=== PATIENT | male | born 1950 | race Caucasian/White ===

== ENCOUNTER → 2018-10-26 | Outpatient (CLI) | payer OTHER ==
--- NOTE | 2018-10-26 14:13 | RAD ---
Chest, 2 views, 10/26/2018: HISTORY: Check pacemaker No previous chest radiographs are available at this time for comparison purposes. A left-sided transvenous pacemaker is in place with one lead extending into the anterior aspect of the right ventricle while the tip of the other lead is projected over the superior aspect of the right atrium. The heart is mildly enlarged. There is calcific plaquing the aorta. The pulmonary vascularity is normal. The lungs are hyperexpanded. Pleural thickening in the left lower chest suggests a moderate volume of pleural fluid. There appears to be minimal underlying left basilar atelectasis. Blunting of the costophrenic angles on the right may be due to scarring or a tiny amount pleural fluid. There is no evidence of pneumothorax. IMPRESSION: 1. Cardiomegaly and aortic atherosclerosis. 2. Left basilar opacity suggesting a moderate volume of pleural fluid with mild underlying atelectasis. Electronically signed by: Chuy Ren MD (10/26/2018 2:10 PM) [facility]
== END | disposition home or self-care (01) ==
LOC: RAD 13:08
PROVIDERS: ATTEND Internal Medicine Cardiovascular Disease
DX: I70.0 Atherosclerosis of aorta (principal); I51.7 Cardiomegaly; I49.5 Sick sinus syndrome; Z95.0 Presence of cardiac pacemaker
CPT/HCPCS: 71046

== ENCOUNTER → 2019-07-07 | Outpatient (CLI) | payer OTHER ==
--- NOTE | 2019-07-12 09:19 | RAD ---
Examination: Pet W Ct Skull To Midthigh History: Lung mass-initial screening; growth of a left lateral apical pleural based irregular mass lesion on CT exam. Images of the CT exam are not provided for correlation. Comparison/Correlation: None FINDINGS: Net dose 13.7 mCi F-18 FDG was administered intravenously for purposes of whole body PET/CT exam. Blood glucose level at the time of radiotracer administration was 85 mg/dL. Hepatic reference uptake is SUV max of 2.3 . Uptake of radiotracer within the visualized head and neck is unremarkable. At the lateral left apical region adjacent to the pleural surface adjacent to the left second rib, there is a 1 cm x 0.5 cm irregularly marginated lesion which has an SUV max of 2. Minimal right apical linear scarring is noted. Right apical 0.5 cm diameter noncalcified nodule is present without uptake and this is below limits of PET resolution. This finding is present on axial image 60 of series 3. Diffuse emphysematous involvement of the lung jules is noted. Left-sided pacemaker with associated leads identified. No enlarged thoracic lymph nodes. No infiltrate or pleural effusion. Uptake of radiotracer within the abdomen and pelvis unremarkable. Degenerative disc space narrowing is notable involving cervical spine and the lower lumbar spine. No radiopaque collecting system calculi. No abdominal aortic aneurysm. IMPRESSION: Uptake involving the left lateral apical pleural based nodule is similar to blood pool uptake. Possibility of low-grade neoplastic process is not excluded on basis of this exam. Centrilobular emphysema. No abnormal uptake involving the abdomen or pelvis. No abnormal uptake involving the visualized head or neck. PQRS Compliance Statement: One or more of the following individualized dose reduction techniques were utilized for this examination: 1. Automated exposure control 2. Adjustment of the mA and/or kV according to patient size 3. Use of iterative reconstruction technique Electronically signed by: Bar Stevens MD (07/12/2019 9:17 AM) [facility]
== END | disposition home or self-care (01) ==
LOC: PETSC 11:29
PROVIDERS: ATTEND Internal Medicine
DX: D38.1 Neoplasm of uncertain behavior of trachea, bronchus and lung (principal); J43.2 Centrilobular emphysema; R91.1 Solitary pulmonary nodule; M50.30 Other cervical disc degeneration, unspecified cervical region; M48.02 Spinal stenosis, cervical region; M51.36 Other intervertebral disc degeneration, lumbar region; M48.061 Spinal stenosis, lumbar region without neurogenic claudication
CPT/HCPCS: 78815; A9552; 78816

== ENCOUNTER 2021-08-15 20:35 | Inpatient (IN) | payer OTHER ==
[~2021-08-15] VITALS: Ht 177.8 cm; Wt 49.3 kg
[2021-08-15] MEDS ORDERED: IV NORMAL SALINE 1000ML BAG 1,000 ML IV ONE (20:45)
[2021-08-15] MEDS ORDERED: ACETAMINOPHEN 500 MG TABLET PO ONE (20:45)
[2021-08-15 20:56] LABS: BASO # 0.1 x10^3/uL (0.0-0.2); BASO % 1 % (0-3); EOS # 0.3 x10^3/uL (0.0-0.7); EOS % 3 % (0-3); HEMATOCRIT 37.9 % (39.0-53.0); HEMOGLOBIN 13.2 g/dL (13.0-17.5); LYMPH # 3.8 x10^3/uL (1.0-4.8); LYMPH % 45 % (24-48); MEAN CORPUSCULAR HEMOGLOBIN 36 pg (25-35); MEAN CORPUSCULAR HGB CONC 35 g/dL (31-37); MEAN CORPUSCULAR VOLUME 104 fL (79-100); MONO # 1.1 x10^3/uL (0.0-1.1); MONO % 14 % (0-9); NEUT # 3.1 x10^3/uL (1.8-7.7); NEUT % 37 % (31-73); PLATELET COUNT 285 x10^3/uL (140-400); RED BLOOD COUNT 3.63 x10^6/uL (4.30-5.70); RED CELL DISTRIBUTION WIDTH 12.8 % (11.5-14.5); WHITE BLOOD COUNT 8.4 x10^3/uL (4.0-11.0)
[2021-08-15 21:04] LABS: PROTHROMBIN TIME PATIENT 12.5 SEC (11.7-14.0)
[2021-08-15 21:10] LABS: CALCIUM 8.3 mg/dL (8.5-10.1); CREATININE 0.7 mg/dL (0.7-1.3); GFR 110.5; POTASSIUM 3.9 mmol/L (3.5-5.1)
[2021-08-15 21:15] LABS: ALBUMIN 3.3 g/dL (3.4-5.0); ALBUMIN/GLOBULIN RATIO 0.9 (1.0-1.7); TOTAL BILIRUBIN 0.4 mg/dL (0.2-1.0); TOTAL PROTEIN 7.1 g/dL (6.4-8.2)
--- NOTE | 2021-08-15 21:32 | RAD ---
EXAMINATION: CT head and cervical spine without IV contrast. INDICATION:71 years, Male, fall, syncope. COMPARISON: None TECHNIQUE: Spiral acquisition of contiguous images from the skull base to the vertex were obtained. C T of the cervical spine was obtained using contiguous spiral imaging from the skull base to the upper thoracic level. Sagittal and coronal 2D reformatted series were provided by the technologist. Soft t issue and bone window algorithms were reviewed. Exposure: One or more of the following individualized dose reduction techniques were utilized for thi s examination: 1. Automated exposure control 2. Adjustment of the mA and/or kV according to patient size 3. Use of iterative reconstruction technique. FINDINGS: CT HEAD: Moderate brain parenchymal volume loss. Supratentorial periventricular white blood hypodensities, ind eterminate but most likely representing chronic microangiopathic disease. Area of encephalomalacia in the right frontal lobe, likely secondary to previous insult. Neither mass, midline shift, intracrani al hemorrhage, acute/subacute ischemic changes, nor extraaxial fluid collections are seen. The paran xiang sinuses, mastoid air cells, and middle ears are clear. The orbital contents appear within normal limits. Small right frontal scalp hematoma with skin brie. CT CERVICAL SPINE: Anatomic alignment of the cervical spine is maintained. Neither fracture, subluxation, nor traumatic spondylolisthesis is seen. The vertebral body heights are preserved. Severe multilevel degenerative c hanges with degenerative loss of vertebral body height, severe disc space narrowing, severe endplate erosions with sclerosis and large osteophytes, worst at C5-6. Severe multilevel bilateral facet and u ncovertebral arthropathy. There is no evidence of a large intraspinal hematoma. The prevertebral and paravertebral soft tissues are within normal limits. Right apical pleural thickening/scarring. IMPRESSION: 1. No acute intracranial abnormality. 2. Small right frontal scalp hematoma with skin brie. 3. No acute fracture of the cervical spine. 4. Severe multilevel degenerative changes of the cervical spine. EXAMINATION: Chest radiograph. VIEWS: 1 COMPARISON: PET/CT dated 07/07/2019 INDICATION:71 years, Male, syncope, fall. FINDINGS: Normal cardiomediastinal silhouette. Biapical pleural thickening/scarring. No focal consolidation. No pleural effusion or pneumothorax. No acute osseous process. Left chest wall pacemaker device. IMPRESSION: No acute cardiopulmonary process. Electronically signed by: Carley Bustamante MD (08/15/2021 9:29 PM) [facility]
[2021-08-15] MEDS ORDERED: DIPHTH,PERTUSS(ACELL),TET TOX 0.5 ML DISP.SYRIN. VAX IM ONE ×2 (22:41→23:00)
[2021-08-15] MEDS ORDERED: PRENATAL MULTIVITAMIN TABLET. PO ONE (22:45)
[2021-08-15] MEDS ORDERED: IOHEXOL 350 MG/ML 100 ML VIAL. IV ONE (22:45)
[2021-08-15] MEDS ORDERED: CONTRAST GIVEN. MC PRN (22:45)
[2021-08-15] MEDS ORDERED: THIAMINE INJ 500 MG in IV DEXTROSE 5% 50 ML IV ONE (22:45)
--- NOTE | 2021-08-15 22:56 | EKG ---
[facility] [address] [place] [address] Test Date: 2021-08-15 Test Time: 22:08:11 Pat Name: NIKI VALLADARES Department: Room: Gender: M Pie Baker: : 1950 Requested By: EMERSON SIMON Order Number: [id number] Reading MD: Dhaval Booker MD Measurements Intervals [place]oe Rate: 94 P: 90 AL: 204 QRS: 57 QRSD: 90 T: 67 QT: 348 QTc: 441 Interpretive Statements SINUS RHYTHM Electronically Signed On 08-16-2021 12:43:46 WALL TAPER by Dhaval Booker MD
--- NOTE | 2021-08-15 23:48 | PHYS DOC ---
Adult General Chief Complaint Chief Complaint: TRAUMA ALERT HPI HPI The patient is a 71-year-old male with a history of hypertension, hyperlipidemia, questionable history of coronary disease (patient is not sure), pacemaker or ICD in place (patient is not sure which), history of prior stroke. Patient is on Eliquis; he is not certain why. Mr. Howell presents via EMS for evaluation following a fall in his garage while drinking alcohol. Patient had had "a few drinks" in his garage when he fell down, striking his forehead on the ground and sustaining a laceration to the area. Unclear if he lost consciousness or not. He was down for a total of about 15 minutes. EMS were called and on arrival he was alert and oriented, moving all extremities but complaining that his bilateral legs felt weak. On arrival to the emergency department, patient is alert and oriented, moving all extremities equally and in no acute distress, with appropriate vital signs. Forehead laceration rather briskly bleeding so quickly approximated the wound edges with brie and applied a dressing to achieve hemostasis. Patient states he was in his normal state of health and was ambulatory prior to going out to the garage. He states he does not know why he fell. He denies fevers, nausea or vomiting, headache, focal or lateralizing weakness, numbness or tingling, neck stiffness/pain/meningismus, vision changes, shortness of breath or chest pain either prior to, during or after the fall, abdominal pain of any kind, flank pain, midline back pain, dysuria, hematuria, polyuria or oliguria, changes in bowel habits, pain or swelling to arms or legs. Review of Systems Review of Systems A 12 point review of systems was completed and was negative except where noted in HPI above. Current Medications Current Medications Current Medications Medications (Trade) Dose Ordered Sig/Mellissa Start Time Stop Time Status Last Admin Dose Admin Acetaminophen (Tylenol) 1,000 mg 1X ONCE 08/15/21 20:45 08/15/21 22:28 DC 08/15/21 22:53 1,000 MG Diphtheria/ Tetanus/Acell Pertussis (Boostrix) 0.5 ml ONCE ONCE 08/15/21 23:00 08/15/21 23:01 DC 08/15/21 23:38 0.5 ML Info (CONTRAST GIVEN -- Rx MONITORING) 1 each PRN DAILY PRN 08/15/21 22:45 08/17/21 22:44 Iohexol (Omnipaque 350 Mg/ml) 75 ml 1X ONCE 08/15/21 22:45 08/15/21 22:46 DC Multivit/ Folic Acid/Iron (Multivitamin ) 1 tab 1X ONCE 08/15/21 22:45 08/15/21 22:46 DC 08/15/21 22:52 1 TAB Sodium Chloride 1,000 ml @ 1,000 mls/hr 1X ONCE 08/15/21 20:45 08/15/21 22:28 DC 08/15/21 22:52 1,000 MLS/HR Thiamine HCl 500 mg/Dextrose 55 ml @ 102 mls/hr 1X ONCE 08/15/21 22:45 08/15/21 23:17 DC 08/15/21 22:52 102 MLS/HR Allergies Allergies Allergies Coded Allergies Type Severity Reaction Last Updated Verified No Known Drug Allergies 08/15/21 No Physical Exam Physical Exam Elderly male appearing nontoxic and in no acute distress. Head is normocephalic and with an approximately 2 cm linear well approximated transversely oriented central forehead laceration, briskly bleeding before being approximated with brie. No instability of the midface. No malocclusion. No hemotympanum bilaterally. No other signs basilar fracture. Neck is supple and nontender. Oropharynx is moist. No dental injury. Lungs are clear to auscultation at all stations. There is a normal S1 and S2 without rubs or gallops and capillary refill is appropriate, less than 2 seconds globally. Abdomen is soft, nontender and nondistended. Pelvis is stable and nontender. Examination of the back reveals no erythema, warmth, swelling, step-offs, deformities, midline or paraspinal tenderness or other acute abnormality. Skin is warm and dry without cyanosis, clubbing or edema. Psychiatrically, the patient demonstrates appropriate mood and affect and is alert. Neurologically, cranial nerves II through XII are intact and there are no lateralizing deficits seen. Speech is normal. Language is normal. Coordination is normal. There is no dysmetria with [id number]-bd-syad or fjss-lm-vueh bilaterally. Strength is 5 out of 5 at all joints of bilateral upper and lower extremities. Sensations intact light touch in bilateral upper and lower extremities. Ambulation is deferred. Patient is alert and oriented x4. Current Patient Data Lab Values Laboratory Tests Test 08/15/21 20:47 White Blood Count 8.4 x10^3/uL (4.0-11.0) Red Blood Count 3.63 x10^6/uL (4.30-5.70) L Hemoglobin 13.2 g/dL (13.0-17.5) Hematocrit 37.9 % (39.0-53.0) L Mean Corpuscular Volume 104 fL (79-100) H Mean Corpuscular Hemoglobin 36 pg (25-35) H Mean Corpuscular Hemoglobin Concent 35 g/dL (31-37) Red Cell Distribution Width 12.8 % (11.5-14.5) Platelet Count 285 x10^3/uL (140-400) Neutrophils (%) (Auto) 37 % (31-73) Lymphocytes (%) (Auto) 45 % (24-48) Monocytes (%) (Auto) 14 % (0-9) H Eosinophils (%) (Auto) 3 % (0-3) Basophils (%) (Auto) 1 % (0-3) Neutrophils # (Auto) 3.1 x10^3/uL (1.8-7.7) Lymphocytes # (Auto) 3.8 x10^3/uL (1.0-4.8) Monocytes # (Auto) 1.1 x10^3/uL (0.0-1.1) Eosinophils # (Auto) 0.3 x10^3/uL (0.0-0.7) Basophils # (Auto) 0.1 x10^3/uL (0.0-0.2) Prothrombin Time 12.5 SEC (11.7-14.0) Prothrombin Time INR 0.9 (0.8-1.1) Activated Partial Thromboplast Time 31 SEC (24-38) Sodium Level 132 mmol/L (136-145) L Potassium Level 3.9 mmol/L (3.5-5.1) Chloride Level 97 mmol/L (98-107) L Carbon Dioxide Level 26 mmol/L (21-32) Anion Gap 9 (6-14) Blood Urea Nitrogen 7 mg/dL (8-26) L Creatinine 0.7 mg/dL (0.7-1.3) Estimated GFR (Cockcroft-Gault) 110.5 BUN/Creatinine Ratio 10 (6-20) Glucose Level 79 mg/dL (70-99) Calcium Level 8.3 mg/dL (8.5-10.1) L Total Bilirubin 0.4 mg/dL (0.2-1.0) Aspartate Amino Transferase (AST) 30 U/L (15-37) Alanine Aminotransferase (ALT) 23 U/L (16-63) Alkaline Phosphatase 71 U/L (46-116) Troponin I High Sensitivity 8 ng/L (4-75) Total Protein 7.1 g/dL (6.4-8.2) Albumin 3.3 g/dL (3.4-5.0) L Albumin/Globulin Ratio 0.9 (1.0-1.7) L Ethyl Alcohol Level 235 mg/dL (0-10) H Laboratory Tests 08/15/21 20:47 Laboratory Tests 08/15/21 20:47 EKG EKG Sinus rhythm, rate 94, first-degree AV block, no acute ST elevation or depression, MD 204, QRS 90, QTc 441, EP interpretation. Nonischemic tracing, intervals appropriate. Baseline artifact somewhat limits interpretation Radiology/Procedures Radiology/Procedures Indication: FOREHEAD LAC Procedure: The area was cleansed with chlorhexidine and saline and copiously irrigated. The laceration was stapled closed with 4 brie; excellent hemostasis was achieved. The wound area was then dressed. Total repaired wound length: 2cm The patient tolerated the procedure well. Complications: None. EXAMINATION: CT head and cervical spine without IV contrast. INDICATION:71 years, Male, fall, syncope. COMPARISON: None TECHNIQUE: Spiral acquisition of contiguous images from the skull base to the vertex were obtained. CT of the cervical spine was obtained using contiguous spiral imaging from the skull base to the upper thoracic level. Sagittal and coronal 2D reformatted series were provided by the technologist. Soft tissue and bone window algorithms were reviewed. Exposure: One or more of the following individualized dose reduction techniques were utilized for this examination: 1. Automated exposure control 2. Adjustment of the mA and/or kV according to patient size 3. Use of iterative reconstruction technique. FINDINGS: CT HEAD: Moderate brain parenchymal volume loss. Supratentorial periventricular white blood hypodensities, indeterminate but most likely representing chronic microangiopathic disease. Area of encephalomalacia in the right frontal lobe, likely secondary to previous insult. Neither mass, midline shift, intracranial hemorrhage, acute/subacute ischemic changes, nor extraaxial fluid collections are seen. The paranasal sinuses, mastoid air cells, and middle ears are clear. The orbital contents appear within normal limits. Small right frontal scalp hematoma with skin brie. CT CERVICAL SPINE: Anatomic alignment of the cervical spine is maintained. Neither fracture, subluxation, nor traumatic spondylolisthesis is seen. The vertebral body heights are preserved. Severe multilevel degenerative changes with degenerative loss of vertebral body height, severe disc space narrowing, severe endplate erosions with sclerosis and large osteophytes, worst at C5-6. Severe multilevel bilateral facet and uncovertebral arthropathy. There is no evidence of a large intraspinal hematoma. The prevertebral and paravertebral soft tissues are within normal limits. Right apical pleural thickening/scarring. IMPRESSION: 1. No acute intracranial abnormality. 2. Small right frontal scalp hematoma with skin brie. 3. No acute fracture of the cervical spine. 4. Severe multilevel degenerative changes of the cervical spine. EXAMINATION: Chest radiograph. VIEWS: 1 COMPARISON: PET/CT dated 07/07/2019 INDICATION:71 years, Male, syncope, fall. FINDINGS: Normal cardiomediastinal silhouette. Biapical pleural thickening/scarring. No focal consolidation. No pleural effusion or pneumothorax. No acute osseous process. Left chest wall pacemaker device. IMPRESSION: No acute cardiopulmonary process. Electronically signed by: Waylon Bustamante MD (08/15/2021 9:29 PM) [facility] DICTATED and SIGNED BY: WAYLON BUSTAMANTE MD DATE: 08/15/21 [id number] [] Course & Med Decision Making Course & Med Decision Making Labs and imaging nonacute aside from evidence of alcohol intoxication. Patient resting comfortably in no acute distress with nonfocal repeat full formal neurologic examination. Attempted to ambulate the patient; he is unable to stand up on his own and continues to state that his legs feel weak. He does have 5 out of 5 strength at all joints of the bilateral upper and lower extremities on repeat assessment. Patient states his legs did not feel weak until he fell; since he fell, they have felt weak. States he thinks he may have fallen because his legs got weak. He denies any back pain at all recently and denies any back pain tonight. Repeat examination of his back is without any tenderness to palpation anywhere or any other abnormalities. States he does not hurt anywhere. Case discussed with Dr. Betancur of neurology who agrees with CT angiography of the head and neck and admission for likely MRI and further evaluation. Graciously accepted for admission by Dr. Thibodeaux of the hospitalist group. Dragon Disclaimer Dragon Disclaimer This electronic medical record was generated, in whole or in part, using a voice recognition dictation system. Departure Departure Impression: Primary Impression: Alcohol intoxication Additional Impressions: Unable to ambulate Bilateral leg weakness Disposition: ADMITTED INPATIENT Condition: GUARDED Referrals: NO PCP (PCP) Problem Qualifiers Primary Impression: Alcohol intoxication Complication of substance-induced condition: uncomplicated Qualified Codes: F10.920 - Alcohol use, unspecified with intoxication, uncomplicated EMERSON SIMON MD Aug 15, 2021 23:48
--- NOTE | 2021-08-15 23:55 | RAD ---
EXAMINATION: CTA HEAD AND NECK W/WO CONTRAST INDICATION:71 years, Male, difficulty ambulating. TECHNIQUE: After bolus of intravenous contrast, volumetric CT data acquisition was acquired of the he ad and neck. Multiplanar reconstruction images to include MIP and 3-D reconstruction images are submi tted. Exposure: One or more of the following individualized dose reduction techniques were utilized for thi s examination: 1. Automated exposure control 2. Adjustment of the mA and/or kV according to patient size 3. Use of iterative reconstruction technique. COMPARISON: PET/CT dated 11/07/2018 FINDINGS: Any determination of stenosis is based on NASCET criteria. Head CTA: ICA: No stenosis, occlusion or aneurysm. Mild atherosclerotic calcifications in the cavernous segment s. MCA: No stenosis, occlusion or aneurysm. EBENEZER: No stenosis, occlusion or aneurysm. MAPPING ENGINEER: No stenosis, occlusion or aneurysm. origin of bilateral shift manager. Basilar artery: No stenosis, occlusion or aneurysm. Distal vertebral arteries: No stenosis, occlusion or aneurysm. CT angiogram neck: Aortic arch: Bovine type. Common carotid arteries: No stenosis, occlusion or dissection. Internal carotid arteries: No stenosis, occlusion or dissection. Mild atherosclerotic calcifications causing less than 20 percent diameter reduction. External carotid arteries: Patent Vertebral arteries: No stenosis, occlusion or dissection. Imaged lung apices demonstrate pleural-based irregular left upper lobe pulmonary nodule measures 8 mm (series 3 image 48), essentially unchanged since prior exam. Similar biapical pleural thickening. Un changed solid pulmonary nodule in the right upper lobe (series 3 image 47). Unchanged 3 mm solid pulm onary nodule in the right upper lobe (series 3 image 17). Moderate centrilobular and paraseptal emphy sema. Soft tissues appear normal. Bones: No pathologic osseous lesions. Severe multilevel degenerative changes in the spine. IMPRESSION: 1. No significant stenosis or occlusion is identified of the intracranial or extracranial arterial v asculature. 2. Stable biapical pulmonary nodules since June 2019, largest 8mm is pleural-based in the left u pper lobe. 3. Moderate centrilobular and paraseptal emphysema. Electronically signed by: Carley Bustamante MD (08/15/2021 11:53 PM) [facility]
[2021-08-16] VITALS (7 sets, daily range): BP systolic 129–161; BP diastolic 72–92
[2021-08-16 00:21] LABS: BILIRUBIN,URINE NEGATIVE (NEG); CLARITY,URINE CLEAR; COLOR,URINE YELLOW; NITRITE,URINE NEGATIVE (NEG); PROTEIN,URINE NEGATIVE (NEG-TRACE); UROBILINOGEN,URINE 0.2 mg/dL (0.2 mg/dL)
[2021-08-16 00:27] LABS: AMPHETAMINE/METHAMPHETAMINE NEG (NEG); BARBITURATES NEG (NEG); BENZODIAZEPINES NEG (NEG); CANNABINOIDS NEG (NEG); COCAINE NEG (NEG); METHADONE NEG (NEG); OPIATES NEG (NEG); PHENCYCLIDINE NEG (NEG)
[2021-08-16 00:29] LABS: BACTERIA,URINE 0 /HPF (0-FEW); WBC,URINE 0 /HPF (0-4)
[2021-08-16] MEDS: IV NORMAL SALINE 1000ML BAG 1,000 ML IV SCH ×2 (00:30→04:26)
[2021-08-16] MEDS ORDERED: ONDANSETRON PF 4 MG/2 ML VIAL. IVP PRN ×2 (00:30→09:30)
[2021-08-16] MEDS ORDERED: ATOR40TA59 PO (02:07)
[2021-08-16] MEDS ORDERED: budesonide INH (02:07)
[2021-08-16] MEDS ORDERED: OMEP20TA8 PO (02:07)
[2021-08-16] MEDS ORDERED: METO-239 PO (02:07)
[2021-08-16] MEDS ORDERED: ipratropium (02:07)
[2021-08-16] MEDS ORDERED: MIRT-7 PO (02:07)
[2021-08-16] MEDS ORDERED: APIX5TAB PO (02:07)
[2021-08-16] MEDS ORDERED: ONDA4TAB12 PO (02:07)
[2021-08-16] MEDS ORDERED: ASPI-886 PO (02:07)
[2021-08-16] MEDS ORDERED: TIOT18CA IH (02:42)
--- NOTE | 2021-08-16 04:29 | NUR ---
Dressing to forehead and rt hand c/d/i. Picture not taken at this due, dressing not changed. patient on eliquis, ED had to do some pressure dressing.
[2021-08-16] MEDS: PANTOPRAZOLE 40 MG TABLET.DR. PO SCH (06:32)
[2021-08-16] MEDS: IPRATRPIUM/ALBUTEROL 0.5/2.5MG 3 ML NEBU. NEB SCH ×4 (06:44→20:00)
[2021-08-16] MEDS: APIXABAN 5 MG TABLET. PO SCH ×2 (07:49→21:19)
[2021-08-16] MEDS: ASPIRIN ENTERIC COATED 81 MG TABLET.DR. PO SCH (07:49)
[2021-08-16] MEDS ORDERED: ONDANSETRON ODT 4 MG TAB.RAPDIS. PO PRN (09:00)
--- NOTE | 2021-08-16 09:19 | PDOC1 ---
History and Physical Date of Service: DOS: DATE: 08/16/21 TIME: 09:13 Chief Complaint: Chief Complain: Fall History of Present Illness: HPI: History obtained in discussion with the ED physician and chart review: 71-year-old male with past medical history of hypertension, dyslipidemia, pacemaker placement done at for unknown reasons and history of prior stroke. Patient states that he had the whole stroke work-up but is unsure if he had atrial fibrillation or any coronary heart disease. Patient is also on Eliquis but does not know why. He is brought in by EMS after patient suffered a fall in the garage. Patient states that he was walking towards the garage and he tripped and fell and hit his forehead on a concrete floor. There was blood there and he was tried to call for his to help him up. Patient is unsure of whether he lost consciousness or not. He denies any dizziness or near synco pe moments before the fall. EMS states that patient was weak on both legs and having trouble walking. Upon my examination and encounter, patient is alert and oriented, moving all extremities equally and in no acute distress, with appropriate vital signs. Bandages on his forehead are dry blood and no active bleeding. Patient states he was in his normal state of health and was ambulatory prior to going out to the garage. He states he does not know why he fell. He denies fevers, nausea or vomiting, headache, focal or lateralizing weakness, numbness or tingling, neck stiffness/pain/meningismus, vision changes, shortness of breath or chest pain either prior to, during or after the fall, abdominal pain of any kind, flank pain, midline back pain, dysuria, hematuria, polyuria or oliguria, changes in bowel habits, pain or swelling to arms or legs. Past Medical/Surgical History: PMH/PSH: Hypertension, dyslipidemia, CAD, pacemaker placement Allergies: Allergies: Coded Allergies: No Known Drug Allergies (Unverified , 08/15/21) Family History: Family History: Reviewed with no relative findings in the chart Social History: Social History: Positive for alcohol use Current Medications: Current Medications Current Medications Acetaminophen (Tylenol) 1,000 mg 1X ONCE PO Last administered on 08/15/21at 22:53; Start 08/15/21 at 20:45; Stop 08/15/21 at 22:28; Status DC Sodium Chloride 1,000 ml @ 1,000 mls/hr 1X ONCE IV Last administered on 08/15/21at 22:52; Start 08/15/21 at 20:45; Stop 08/15/21 at 22:28; Status DC Thiamine HCl 500 mg/Dextrose 55 ml @ 102 mls/hr 1X ONCE IV Last administered on 08/15/21at 22:52; Start 08/15/21 at 22:45; Stop 08/15/21 at 23:17; Status DC Multivit/ Folic Acid/Iron (Multivitamin ) 1 tab 1X ONCE PO Last administered on 08/15/21at 22:52; Start 08/15/21 at 22:45; Stop 08/15/21 at 22:46; Status DC Iohexol (Omnipaque 350 Mg/ml) 75 ml 1X ONCE IV ; Start 08/15/21 at 22:45; Stop 08/15/21 at 22:46; Status DC Info (CONTRAST GIVEN -- Rx MONITORING) 1 each PRN DAILY PRN MC SEE COMMENTS; Start 08/15/21 at 22:45; Stop 08/17/21 at 22:44 Diphtheria/ Tetanus/Acell Pertussis (Boostrix) 0.5 ml ONCE ONCE VAX IM Last administered on 08/15/21at 23:38; Start 08/15/21 at 23:00; Stop 08/15/21 at 23:01; Status DC Ondansetron HCl (Zofran) 4 mg PRN Q8HRS PRN IVP NAUSEA/VOMITING; Start 08/16/21 at 00:30; Stop 08/17/21 at 00:29 Sodium Chloride 1,000 ml @ 75 mls/hr [id number] IV Last administered on 08/16/21at 04:26; Start 08/16/21 at 00:30; Stop 08/17/21 at 00:29 Apixaban (Eliquis) 5 mg BID PO Last administered on 08/16/21at 07:49; Start 08/16/21 at 09:00 Aspirin (Ecotrin) 81 mg DAILY08 PO Last administered on 08/16/21at 07:49; Start 08/16/21 at 08:00 Atorvastatin Calcium (Lipitor) 40 mg QHS PO ; Start 08/16/21 at 21:00 Metoprolol Succinate (Toprol Xl) 25 mg DAILY PO ; Start 08/16/21 at 09:00 Mirtazapine (Remeron) 15 mg QHS PO ; Start 08/16/21 at 21:00 Ondansetron HCl (Zofran Odt) 4 mg PRN QID PRN PO NAUSEA/VOMITING; Start 08/16/21 at 09:00 Pantoprazole Sodium (Protonix) 40 mg DAILYAC PO Last administered on 08/16/21at 06:32; Start 08/16/21 at 07:30 Albuterol/ Ipratropium (Duoneb) 3 ml RTQID NEB ; Start 08/16/21 at 08:00 Multivitamins (Thera M Plus) 1 tab DAILY PO ; Start 08/21/21 at 09:00 Folic Acid (Folic Acid) 1 mg DAILY PO ; Start 08/21/21 at 09:00 Thiamine Mononitrate (Vitamin B-1) 100 mg DAILY PO ; Start 08/21/21 at 09:00 Lorazepam (Ativan) 4 mg PRN Q1HR PRN PO For CIWA 8-14; Start 08/16/21 at 05:15 Lorazepam (Ativan) 8 mg PRN Q1HR PRN PO For CIWA 15 or greater; Start 08/16/21 at 05:15 Active Scripts Active Reported Spiriva (Tiotropium [place]) 18 Mcg Cap.w.dev 2 Inh IH DAILY [budesonide] Unknown Strength Unknown Dose INH Ondansetron Odt (Ondansetron) 4 Mg Tab.rapdis 1 Tab PO QID Omeprazole 20 Mg Tablet.dr 1 Tab PO DAILY Aspirin Ec (Aspirin) 81 Mg Tablet.dr 1 Tab PO DAILY Metoprolol Succinate ( Xl ) (Metoprolol Succinate) 25 Mg Tab.er.24h 1 Tab PO DAILY Eliquis (Apixaban) 5 Mg Tablet 5 Mg PO BID Atorvastatin Calcium 40 Mg Tablet 1 Tab PO QHS Mirtazapine 15 Mg Tablet 1 Tab PO QHS ROS: Review of Systems Review of System REVIEW OF SYSTEMS: GENERAL: Denies weakness SKIN: No bruising, hair changes or rashes. EYES: No blurred, double or loss of vision. NOSE AND THROAT: No history of nosebleeds, hoarseness or sore throat. HEART: No history of palpitations, chest pain or shortness of breath on exertion. LUNGS: Denies cough, hemoptysis, wheezing or shortness of breath. GASTROINTESTINAL: Denies changes in appetite, nausea, vomiting, diarrhea or constipation. GENITOURINARY: No history of frequency, urgency, hesitancy or nocturia. NEUROLOGIC: Denies history of numbness, tingling, or tremor. PSYCHIATRIC: No history of panic, anxiety or depression. ENDOCRINE: No history of heat or cold intolerance, polyuria or polydipsia. EXTREMITIES: Denies joint pain, pain on walking or stiffness. Physical Exam: Vital Signs: Vital Signs Date Time Temp Pulse Resp B/P (MAP) Pulse Ox O2 Delivery O2 Flow Rate FiO2 08/16/21 07:40 Room Air 08/16/21 07:00 98.0 105 18 161/92 (115) 96 98.0 Physcial Exam: General: Well developed, nontoxic and in no apparent distress. HEENT: Forehead laceration with brie intact. No active bleeding. Pupils equally round and reactive to light, EOMI, no discharge, normal conjunctiva Neck: Supple, no nuchal rigidity, no JVD, trachea midline, no tenderness Cardiac: RRR, no murmurs, no gallops, no rubs Chest/Lungs: CTAB, no wheeze, no rhonchi, no crackles Abdomen: soft, non-distended, no guarding, no peritoneal signs, non-tender Back: No tenderness Extremities: no edema, pulses intact, non-tender,capillary refill <3 sec bilateral upper and lower extremities, Neuro: Alert and oriented x 4, no focal deficits, normal speech Labs: Labs: Laboratory Tests Test 08/15/21 20:47 08/16/21 00:15 08/16/21 04:00 White Blood Count 8.4 x10^3/uL (4.0-11.0) Red Blood Count 3.63 x10^6/uL (4.30-5.70) Hemoglobin 13.2 g/dL (13.0-17.5) Hematocrit 37.9 % (39.0-53.0) Mean Corpuscular Volume 104 fL (79-100) Mean Corpuscular Hemoglobin 36 pg (25-35) Mean Corpuscular Hemoglobin Concent 35 g/dL (31-37) Red Cell Distribution Width 12.8 % (11.5-14.5) Platelet Count 285 x10^3/uL (140-400) Neutrophils (%) (Auto) 37 % (31-73) Lymphocytes (%) (Auto) 45 % (24-48) Monocytes (%) (Auto) 14 % (0-9) Eosinophils (%) (Auto) 3 % (0-3) Basophils (%) (Auto) 1 % (0-3) Neutrophils # (Auto) 3.1 x10^3/uL (1.8-7.7) Lymphocytes # (Auto) 3.8 x10^3/uL (1.0-4.8) Monocytes # (Auto) 1.1 x10^3/uL (0.0-1.1) Eosinophils # (Auto) 0.3 x10^3/uL (0.0-0.7) Basophils # (Auto) 0.1 x10^3/uL (0.0-0.2) Prothrombin Time 12.5 SEC (11.7-14.0) Prothromb Time International Ratio 0.9 (0.8-1.1) Activated Partial Thromboplast Time 31 SEC (24-38) Sodium Level 132 mmol/L (136-145) Potassium Level 3.9 mmol/L (3.5-5.1) Chloride Level 97 mmol/L (98-107) Carbon Dioxide Level 26 mmol/L (21-32) Anion Gap 9 (6-14) Blood Urea Nitrogen 7 mg/dL (8-26) Creatinine 0.7 mg/dL (0.7-1.3) Estimated GFR (Cockcroft-Gault) 110.5 BUN/Creatinine Ratio 10 (6-20) Glucose Level 79 mg/dL (70-99) Calcium Level 8.3 mg/dL (8.5-10.1) Total Bilirubin 0.4 mg/dL (0.2-1.0) Aspartate Amino Transf (AST/SGOT) 30 U/L (15-37) Alanine Aminotransferase (ALT/SGPT) 23 U/L (16-63) Alkaline Phosphatase 71 U/L (46-116) Troponin I High Sensitivity 8 ng/L (4-75) 20 ng/L (4-75) Total Protein 7.1 g/dL (6.4-8.2) Albumin 3.3 g/dL (3.4-5.0) Albumin/Globulin Ratio 0.9 (1.0-1.7) Ethyl Alcohol Level 235 mg/dL (0-10) Urine Collection Type Void Urine Color Yellow Urine Clarity Clear Urine pH 6.0 (<5.0-8.0) Urine Specific [place] <=1.005 (1.000-1.030) Urine Protein Negative mg/dL (NEG-TRACE) Urine Glucose (UA) Negative mg/dL (NEG) Urine Ketones (Stick) Negative mg/dL (NEG) Urine Blood Moderate (NEG) Urine Nitrite Negative (NEG) Urine Bilirubin Negative (NEG) Urine Urobilinogen Dipstick 0.2 mg/dL (0.2 mg/dL) Urine Leukocyte Esterase Negative (NEG) Urine RBC 1-2 /HPF (0-2) Urine WBC 0 /HPF (0-4) Urine Squamous Epithelial Cells None /LPF Urine Bacteria 0 /HPF (0-FEW) Urine Opiates Screen Neg (NEG) Urine Methadone Screen Neg (NEG) Urine Barbiturates Neg (NEG) Urine Phencyclidine Screen Neg (NEG) Urine Amphetamine/Methamphetamine Neg (NEG) Urine Benzodiazepines Screen Neg (NEG) Urine Cocaine Screen Neg (NEG) Urine Cannabinoids Screen Neg (NEG) Urine Ethyl Alcohol Pos (NEG) Laboratory Tests Test 08/15/21 20:47 08/16/21 00:15 08/16/21 04:00 White Blood Count 8.4 x10^3/uL (4.0-11.0) Red Blood Count 3.63 x10^6/uL (4.30-5.70) Hemoglobin 13.2 g/dL (13.0-17.5) Hematocrit 37.9 % (39.0-53.0) Mean Corpuscular Volume 104 fL (79-100) Mean Corpuscular Hemoglobin 36 pg (25-35) Mean Corpuscular Hemoglobin Concent 35 g/dL (31-37) Red Cell Distribution Width 12.8 % (11.5-14.5) Platelet Count 285 x10^3/uL (140-400) Neutrophils (%) (Auto) 37 % (31-73) Lymphocytes (%) (Auto) 45 % (24-48) Monocytes (%) (Auto) 14 % (0-9) Eosinophils (%) (Auto) 3 % (0-3) Basophils (%) (Auto) 1 % (0-3) Neutrophils # (Auto) 3.1 x10^3/uL (1.8-7.7) Lymphocytes # (Auto) 3.8 x10^3/uL (1.0-4.8) Monocytes # (Auto) 1.1 x10^3/uL (0.0-1.1) Eosinophils # (Auto) 0.3 x10^3/uL (0.0-0.7) Basophils # (Auto) 0.1 x10^3/uL (0.0-0.2) Prothrombin Time 12.5 SEC (11.7-14.0) Prothromb Time International Ratio 0.9 (0.8-1.1) Activated Partial Thromboplast Time 31 SEC (24-38) Sodium Level 132 mmol/L (136-145) Potassium Level 3.9 mmol/L (3.5-5.1) Chloride Level 97 mmol/L (98-107) Carbon Dioxide Level 26 mmol/L (21-32) Anion Gap 9 (6-14) Blood Urea Nitrogen 7 mg/dL (8-26) Creatinine 0.7 mg/dL (0.7-1.3) Estimated GFR (Cockcroft-Gault) 110.5 BUN/Creatinine Ratio 10 (6-20) Glucose Level 79 mg/dL (70-99) Calcium Level 8.3 mg/dL (8.5-10.1) Total Bilirubin 0.4 mg/dL (0.2-1.0) Aspartate Amino Transf (AST/SGOT) 30 U/L (15-37) Alanine Aminotransferase (ALT/SGPT) 23 U/L (16-63) Alkaline Phosphatase 71 U/L (46-116) Troponin I High Sensitivity 8 ng/L (4-75) 20 ng/L (4-75) Total Protein 7.1 g/dL (6.4-8.2) Albumin 3.3 g/dL (3.4-5.0) Albumin/Globulin Ratio 0.9 (1.0-1.7) Ethyl Alcohol Level 235 mg/dL (0-10) Urine Collection Type Void Urine Color Yellow Urine Clarity Clear Urine pH 6.0 (<5.0-8.0) Urine Specific [place] <=1.005 (1.000-1.030) Urine Protein Negative mg/dL (NEG-TRACE) Urine Glucose (UA) Negative mg/dL (NEG) Urine Ketones (Stick) Negative mg/dL (NEG) Urine Blood Moderate (NEG) Urine Nitrite Negative (NEG) Urine Bilirubin Negative (NEG) Urine Urobilinogen Dipstick 0.2 mg/dL (0.2 mg/dL) Urine Leukocyte Esterase Negative (NEG) Urine RBC 1-2 /HPF (0-2) Urine WBC 0 /HPF (0-4) Urine Squamous Epithelial Cells None /LPF Urine Bacteria 0 /HPF (0-FEW) Urine Opiates Screen Neg (NEG) Urine Methadone Screen Neg (NEG) Urine Barbiturates Neg (NEG) Urine Phencyclidine Screen Neg (NEG) Urine Amphetamine/Methamphetamine Neg (NEG) Urine Benzodiazepines Screen Neg (NEG) Urine Cocaine Screen Neg (NEG) Urine Cannabinoids Screen Neg (NEG) Urine Ethyl Alcohol Pos (NEG) Images: Images PROCEDURE: CHEST AP ONLY EXAMINATION: CT head and cervical spine without IV contrast. INDICATION:71 years, Male, fall, syncope. COMPARISON: None TECHNIQUE: Spiral acquisition of contiguous images from the skull base to the vertex were obtained. CT of the cervical spine was obtained using contiguous spiral imaging from the skull base to the upper thoracic level. Sagittal and coronal 2D reformatted series were provided by the technologist. Soft tissue and bone window algorithms were reviewed. Exposure: One or more of the following individualized dose reduction techniques were utilized for this examination: 1. Automated exposure control 2. Adjustment of the mA and/or kV according to patient size 3. Use of iterative reconstruction technique. FINDINGS: CT HEAD: Moderate brain parenchymal volume loss. Supratentorial periventricular white blood hypodensities, indeterminate but most likely representing chronic microangiopathic disease. Area of encephalomalacia in the right frontal lobe, likely secondary to previous insult. Neither mass, midline shift, intracranial hemorrhage, acute/subacute ischemic changes, nor extraaxial fluid collections are seen. The paranasal sinuses, mastoid air cells, and middle ears are clear. The orbital contents appear within normal limits. Small right frontal scalp hematoma with skin brie. CT CERVICAL SPINE: Anatomic alignment of the cervical spine is maintained. Neither fracture, subluxation, nor traumatic spondylolisthesis is seen. The vertebral body heights are preserved. Severe multilevel degenerative changes with degenerative loss of vertebral body height, severe disc space narrowing, severe endplate erosions with sclerosis and large osteophytes, worst at C5-6. Severe multilevel bilateral facet and uncovertebral arthropathy. There is no evidence of a large intraspinal hematoma. The prevertebral and paravertebral soft tissues are within normal limits. Right apical pleural thickening/scarring. IMPRESSION: 1. No acute intracranial abnormality. 2. Small right frontal scalp hematoma with skin brie. 3. No acute fracture of the cervical spine. 4. Severe multilevel degenerative changes of the cervical spine. EXAMINATION: Chest radiograph. VIEWS: 1 COMPARISON: PET/CT dated 07/07/2019 INDICATION:71 years, Male, syncope, fall. FINDINGS: Normal cardiomediastinal silhouette. Biapical pleural thickening/scarring. No focal consolidation. No pleural effusion or pneumothorax. No acute osseous process. Left chest wall pacemaker device. IMPRESSION: No acute cardiopulmonary process. Assessment/Plan Assessment/Plan Mechanical fall with scalp hematoma Acute alcohol intoxication Macrocytic anemia Acute electrolyte derangementhyponatremia, hypochloremia, hypocalcemia due to volume depletion Questionable syncope due to vasovagal etiology, orthostatic hypotension, cardiovascular etiology Admit to medicine for further work-up Pending neurology consult Cardiology consult Pending echocardiogram Continue telemetry monitoring Fall precautions Orthostatic vital signs Hold all centrally acting medications Pending medication reconciliation Pending vitamin B-12 levels Supplementation with folic acid and thiamine Eliquis for DVT prophylaxis Cardiac diet Full code Discussed with RN and SW Disposition inpatient management as above Surrogate decision maker is the In addition to my E/M visit, advance care planning done with A total time of 20 minutes was spent from 10:00 to 1020 face to face in discussion regarding the patient's goals of care, CODE STATUS. Justifications for Admission Other Justification GHAZALA ERNST MD Aug 16, 2021 09:19
[2021-08-16] MEDS ORDERED: diphenhydrAMINE HCL 25 MG CAPSULE PO PRN ×2 (09:30)
[2021-08-16] MEDS ORDERED: LORazepam 0.5 MG TABLET PO PRN (09:30)
[2021-08-16] MEDS ORDERED: PROCHLORPERAZINE 10 MG/2 ML VIAL. IV PRN (09:30)
[2021-08-16] MEDS ORDERED: DOCUSATE SODIUM 100 MG CAPSULE. PO PRN (09:30)
[2021-08-16] MEDS ORDERED: SENNOSIDES 8.6 MG TABLET PO PRN (09:30)
[2021-08-16] MEDS ORDERED: DEXTROSE 50% 25 GM / 50ML DISP.SYRIN. IV PRN (09:30)
[2021-08-16] MEDS ORDERED: ACETAMINOPHEN 325 MG TABLET. PO PRN (09:30)
[2021-08-16] MEDS ORDERED: diphenhydrAMINE 50 MG/ML VIAL IVP PRN (09:30)
[2021-08-16] MEDS ORDERED: ZOLPIDEM 5 MG TABLET. PO PRN (09:30)
[2021-08-16] MEDS: METOPROLOL SUCC 24HR ER 25 MG TAB.ER.24H. PO SCH (09:56)
[2021-08-16] MEDS: THIAMINE 100 MG TABLET. PO SCH (10:35)
[2021-08-16] MEDS: FOLIC ACID 1 MG TABLET. PO SCH (10:35)
--- NOTE | 2021-08-16 13:13 | CONS ---
DATE OF CONSULTATION: 08/16/2021 REASON FOR CONSULTATION: Fall and history of pacemaker. HISTORY OF PRESENT ILLNESS: The patient is a 71-year-old man with past medical history as noted below, who presented to the hospital in the setting of a trauma alert. He does have known history of atrial fibrillation and apparently when EMS was called, he was found in the garage while drinking alcohol. He was diagnosed with altered mental status due to alcohol use. Ultimately, he has been admitted to the hospital and this morning, he appears to be still under intoxication, but is able to work with physical therapy and is walking, albeit unsteadily. The patient denies any current chest pain or shortness of breath. He is followed through, primarily at [facility]. PAST MEDICAL HISTORY: 1. 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 2. History of cerebrovascular accident in the setting of atrial fibrillation, on anticoagulation with Eliquis. 3. Mild hypertension. 4. History of nonischemic cardiomyopathy with ejection fraction of 45%, normalized to 65% on echocardiogram. SOCIAL HISTORY: The patient is a smoker. He is obviously uses alcohol regularly. No illicit drug use. ALLERGIES: No known drug allergies. CURRENT CARDIOVASCULAR MEDICATIONS: As follows: 1. Atorvastatin 40 mg daily. 2. Metoprolol 25 mg daily. 3. Eliquis 5 mg p.o. b.i.d. 4. Aspirin 81 mg daily. REVIEW OF SYSTEMS: Negative for 10 out of 14 systems reviewed, unless otherwise mentioned above in HPI. PHYSICAL EXAMINATION: VITAL SIGNS: Afebrile, 85, 18, 150/84, 95% on room air. GENERAL: He is alert and oriented to self and place, but not to time. HEAD AND NECK: Notable for mild ecchymoses on his forehead with laceration with brie that are intact. Pupils are equal and reactive. NECK: Unremarkable. CARDIAC: Regular rate and rhythm without any obvious murmurs. LUNGS: Clear to auscultation bilaterally. ABDOMEN: Soft, nontender, nondistended. EXTREMITIES: No obvious clubbing, cyanosis or edema with 2+ pulses. NEUROLOGIC: No focal deficits. MUSCULOSKELETAL: No trauma. DIAGNOSTIC STUDIES: Telemetry demonstrates sinus rhythm with intermittent atrial pacing. EKG is unremarkable for any acute pathology. CT angiogram of the head did not demonstrate any significant pathology. Cervical spine CT did not demonstrate any significant pathology. IMPRESSION: 1. Likely mechanical fall secondary to his alcohol abuse. 2. History of atrial fibrillation, status post pacemaker for history of 10 second pause. 3. Chronic anticoagulation with Eliquis due to atrial fibrillation, prior cerebrovascular accident. 4. Cerebrovascular accident without any acute imaging evidence of a stroke. RECOMMENDATIONS: His pacemaker was recently evaluated through [facility] and was working appropriately. He has had some transient supraventricular tachycardia, likely related to his alcohol abuse. At this time, no further cardiovascular testing is necessary. *Continue home medications for now. Patient advised to abstain from alcohol due to risk of bleeding with falls. We will plan for an outpatient echocardiogram and follow up through our office or through [facility]. Thank you for this consultation. FRANCIS DR: Venkat TID: [id number] JAKOB
--- NOTE | 2021-08-16 13:22 | PDOC2 ---
NEUROLOGY CONSULT Date of Service DOS: DATE: 08/16/21 TIME: 13:08 Reason for Consult Reason for Consult: Fall, ataxia, possible stroke Referring Physician Referring Physician: Dr. Crawford Source Source: Chart review, Patient History of Present Illness History of Present Illness The patient is a 71-year-old right-handed male who was drinking beer in his garage last night and then fell. He hit his head. There was blood. He tried to call his for help, he does not know if he lost consciousness. In the emergency department he was found to have an alcohol level of 235. There were no focal findings on examination, but he was unable to walk so it was decided to admit him. Patient says that he has been using a cane for the last several months because of frequent falls. He has had 2 strokes in the past. With verbal permission I reviewed his chart. He had non-ST elevation myocardial infarction in August 2018 with an embolic stroke from atrial fibrillation a month later. At the time of the myocardial infarction his coronary angiogram was normal but he did have wall motion abnormalities and elevated troponin on admission. cardiology plans to keep him on apixaban indefinitely. He is also on aspirin, atorvastatin, and metoprolol. 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[employer], infantry Current Medications Current Medications Current Medications Acetaminophen (Tylenol) 1,000 mg 1X ONCE PO Last administered on 08/15/21at 22:53; Start 08/15/21 at 20:45; Stop 08/15/21 at 22:28; Status DC Sodium Chloride 1,000 ml @ 1,000 mls/hr 1X ONCE IV Last administered on 08/15/21at 22:52; Start 08/15/21 at 20:45; Stop 08/15/21 at 22:28; Status DC Thiamine HCl 500 mg/Dextrose 55 ml @ 102 mls/hr 1X ONCE IV Last administered on 08/15/21at 22:52; Start 08/15/21 at 22:45; Stop 08/15/21 at 23:17; Status DC Multivit/ Folic Acid/Iron (Multivitamin ) 1 tab 1X ONCE PO Last administered on 08/15/21at 22:52; Start 08/15/21 at 22:45; Stop 08/15/21 at 22:46; Status DC Iohexol (Omnipaque 350 Mg/ml) 75 ml 1X ONCE IV ; Start 08/15/21 at 22:45; Stop 08/15/21 at 22:46; Status DC Info (CONTRAST GIVEN -- Rx MONITORING) 1 each PRN DAILY PRN MC SEE COMMENTS; Start 08/15/21 at 22:45; Stop 08/17/21 at 22:44 Diphtheria/ Tetanus/Acell Pertussis (Boostrix) 0.5 ml ONCE ONCE VAX IM Last administered on 08/15/21at 23:38; Start 08/15/21 at 23:00; Stop 08/15/21 at 23:01; Status DC Ondansetron HCl (Zofran) 4 mg PRN Q8HRS PRN IVP NAUSEA/VOMITING; Start 08/16/21 at 00:30; Stop 08/17/21 at 00:29 Sodium Chloride 1,000 ml @ 75 mls/hr [id number] IV Last administered on 08/16/21at 04:26; Start 08/16/21 at 00:30; Stop 08/17/21 at 00:29 Apixaban (Eliquis) 5 mg BID PO Last administered on 08/16/21at 07:49; Start 07/27 09/16 at 09:00 Aspirin (Ecotrin) 81 mg DAILY08 PO Last administered on 08/16/21at 07:49; Start 08/16/21 at 08:00 Atorvastatin Calcium (Lipitor) 40 mg QHS PO ; Start 08/16/21 at 21:00 Metoprolol Succinate (Toprol Xl) 25 mg DAILY PO Last administered on 08/16/21at 09:56; Start 08/16/21 at 09:00 Mirtazapine (Remeron) 15 mg QHS PO ; Start 08/16/21 at 21:00 Ondansetron HCl (Zofran Odt) 4 mg PRN QID PRN PO NAUSEA/VOMITING; Start 08/16/21 at 09:00 Pantoprazole Sodium (Protonix) 40 mg DAILYAC PO Last administered on 08/16/21at 06:32; Start 08/16/21 at 07:30 Albuterol/ Ipratropium (Duoneb) 3 ml RTQID NEB ; Start 08/16/21 at 08:00 Multivitamins (Thera M Plus) 1 tab DAILY PO ; Start 08/21/21 at 09:00 Folic Acid (Folic Acid) 1 mg DAILY PO ; Start 08/21/21 at 09:00; Stop 08/16/21 at 09:30; Status DC Thiamine Mononitrate (Vitamin B-1) 100 mg DAILY PO ; Start 08/21/21 at 09:00; Stop 08/16/21 at 09:30; Status DC Lorazepam (Ativan) 4 mg PRN Q1HR PRN PO For CIWA 8-14; Start 08/16/21 at 05:15 Lorazepam (Ativan) 8 mg PRN Q1HR PRN PO For CIWA 15 or greater; Start 08/16/21 at 05:15 Sennosides (Senna) 17.2 mg PRN BID PRN PO CONSTIPATION; Start 08/16/21 at 09:30 Docusate Sodium (Colace) 100 mg PRN DAILY PRN PO HARD STOOLS; Start 08/16/21 at 09:30 Ondansetron HCl (Zofran) 4 mg PRN Q6HRS PRN IVP NAUSEA/VOMITING, 1st CHOICE; Start 08/16/21 at 09:30 Dextrose (Dextrose 50%-Water Syringe) 12.5 gm PRN Q15MIN PRN IV SEE COMMENTS; Start 08/16/21 at 09:30 Acetaminophen (Tylenol) 650 mg PRN Q4HRS PRN PO TEMP OVER 100.4F OR MILD PAIN; Start 08/16/21 at 09:30 Lorazepam (Ativan) 0.5 mg PRN Q6HRS PRN PO ANXIETY / AGITATION; Start 08/16/21 at 09:30 Lorazepam (Ativan Inj) 0.25 mg PRN Q4HRS PRN IV ANXIETY / AGITATION; Start 08/16/21 at 09:30 Prochlorperazine Edisylate (Compazine) 10 mg PRN Q6HRS PRN IV NAUSEA/VOMITING, 2nd CHOICE; Start 08/16/21 at 09:30 Diphenhydramine HCl (Benadryl) 25 mg PRN Q6HRS PRN IVP ITCHING; Start 08/16/21 at 09:30 Diphenhydramine HCl (Benadryl) 25 mg PRN Q6HRS PRN PO ITCHING; Start 08/16/21 at 09:30 Diphenhydramine HCl (Benadryl) 25 mg PRN QHS PRN PO INSOMNIA, 1st CHOICE; Start 08/16/21 at 09:30 Zolpidem Tartrate (Ambien) 2.5 mg PRN QHS PRN PO INSOMNIA, 2nd CHOICE; Start 08/16/21 at 09:30 Thiamine Mononitrate (Vitamin B-1) 300 mg DAILY PO Last administered on at 10:35; Start 08/16/21 at 10:30 Folic Acid (Folic Acid) 1 mg DAILY PO Last administered on 08/16/21at 10:35; Start 08/16/21 at 10:30 Active Scripts Active Reported Spiriva (Tiotropium [place]) 18 Mcg Cap.w.dev 2 Inh IH DAILY [budesonide] Unknown Strength Unknown Dose INH Ondansetron Odt (Ondansetron) 4 Mg Tab.rapdis 1 Tab PO QID Omeprazole 20 Mg Tablet.dr 1 Tab PO DAILY Aspirin Ec (Aspirin) 81 Mg Tablet.dr 1 Tab PO DAILY Metoprolol Succinate ( Xl ) (Metoprolol Succinate) 25 Mg Tab.er.24h 1 Tab PO DAILY Eliquis (Apixaban) 5 Mg Tablet 5 Mg PO BID Atorvastatin Calcium 40 Mg Tablet 1 Tab PO QHS Mirtazapine 15 Mg Tablet 1 Tab PO QHS Allergies Allergies: Coded Allergies: No Known Drug Allergies (Unverified , 08/15/21) ROS Review of System Negative for fever, chills, weight loss, chest pain, indigestion, hematochezia, melena, and dysuria. Positive for dyspnea. Full 14-point review of systems is negative. Physical Exam Physical Examination General: Well-developed, well-nourished, white male, in no acute distress HEENT: Normocephalic. Bandage on his forehead, ecchymoses around the right eye. Temporal arteriespulsatile and nontender. Neck: Supple without bruit, no meningismus Musculoskeletal: Stability:see neurologic. Gait exam:see neurologic. Tone:see neurologic.Strength:see neurologic. Neurological: Mental Status:intact, orientation, memory, attention span/concentration, language, fund of knowledge normal. Cranial Nerves:Pupils equal and reactive to light, extraocular movements areintact, visual jules are full to confrontation. Facial sensation is normal. There is no facial asymmetry. Vestibulo-ocular reflex is intact. Palate elevates and tongue protrudes in midline. All other cranial related problems are negative except as mentioned before.Reflexes:2+ and symmetric with flexor plantar responses. Motor:5/5 strength with normal tone and bulk. Coordination:Finger-nose finger and [id number] testing are normal. Rapid alternating movements and fine finger movements are intact. Gait:Ataxic. Sensory:Normal pinprick, vibration, light touch, proprioception. Vitals VITALS Vital Signs Date Time Temp Pulse Resp B/P (MAP) Pulse Ox O2 Delivery O2 Flow Rate FiO2 08/16/21 11:00 98.0 85 18 150/84 (106) 95 Room Air 98.0 Labs Labs Laboratory Tests Test 08/15/21 20:47 08/16/21 00:15 08/16/21 04:00 White Blood Count 8.4 x10^3/uL (4.0-11.0) Red Blood Count 3.63 x10^6/uL (4.30-5.70) Hemoglobin 13.2 g/dL (13.0-17.5) Hematocrit 37.9 % (39.0-53.0) Mean Corpuscular Volume 104 fL (79-100) Mean Corpuscular Hemoglobin 36 pg (25-35) Mean Corpuscular Hemoglobin Concent 35 g/dL (31-37) Red Cell Distribution Width 12.8 % (11.5-14.5) Platelet Count 285 x10^3/uL (140-400) Neutrophils (%) (Auto) 37 % (31-73) Lymphocytes (%) (Auto) 45 % (24-48) Monocytes (%) (Auto) 14 % (0-9) Eosinophils (%) (Auto) 3 % (0-3) Basophils (%) (Auto) 1 % (0-3) Neutrophils # (Auto) 3.1 x10^3/uL (1.8-7.7) Lymphocytes # (Auto) 3.8 x10^3/uL (1.0-4.8) Monocytes # (Auto) 1.1 x10^3/uL (0.0-1.1) Eosinophils # (Auto) 0.3 x10^3/uL (0.0-0.7) Basophils # (Auto) 0.1 x10^3/uL (0.0-0.2) Prothrombin Time 12.5 SEC (11.7-14.0) Prothromb Time International Ratio 0.9 (0.8-1.1) Activated Partial Thromboplast Time 31 SEC (24-38) Sodium Level 132 mmol/L (136-145) Potassium Level 3.9 mmol/L (3.5-5.1) Chloride Level 97 mmol/L (98-107) Carbon Dioxide Level 26 mmol/L (21-32) Anion Gap 9 (6-14) Blood Urea Nitrogen 7 mg/dL (8-26) Creatinine 0.7 mg/dL (0.7-1.3) Estimated GFR (Cockcroft-Gault) 110.5 BUN/Creatinine Ratio 10 (6-20) Glucose Level 79 mg/dL (70-99) Calcium Level 8.3 mg/dL (8.5-10.1) Total Bilirubin 0.4 mg/dL (0.2-1.0) Aspartate Amino Transf (AST/SGOT) 30 U/L (15-37) Alanine Aminotransferase (ALT/SGPT) 23 U/L (16-63) Alkaline Phosphatase 71 U/L (46-116) Troponin I High Sensitivity 8 ng/L (4-75) 20 ng/L (4-75) Total Protein 7.1 g/dL (6.4-8.2) Albumin 3.3 g/dL (3.4-5.0) Albumin/Globulin Ratio 0.9 (1.0-1.7) Ethyl Alcohol Level 235 mg/dL (0-10) Urine Collection Type Void Urine Color Yellow Urine Clarity Clear Urine pH 6.0 (<5.0-8.0) Urine Specific [place] <=1.005 (1.000-1.030) Urine Protein Negative mg/dL (NEG-TRACE) Urine Glucose (UA) Negative mg/dL (NEG) Urine Ketones (Stick) Negative mg/dL (NEG) Urine Blood Moderate (NEG) Urine Nitrite Negative (NEG) Urine Bilirubin Negative (NEG) Urine Urobilinogen Dipstick 0.2 mg/dL (0.2 mg/dL) Urine Leukocyte Esterase Negative (NEG) Urine RBC 1-2 /HPF (0-2) Urine WBC 0 /HPF (0-4) Urine Squamous Epithelial Cells None /LPF Urine Bacteria 0 /HPF (0-FEW) Urine Opiates Screen Neg (NEG) Urine Methadone Screen Neg (NEG) Urine Barbiturates Neg (NEG) Urine Phencyclidine Screen Neg (NEG) Urine Amphetamine/Methamphetamine Neg (NEG) Urine Benzodiazepines Screen Neg (NEG) Urine Cocaine Screen Neg (NEG) Urine Cannabinoids Screen Neg (NEG) Urine Ethyl Alcohol Pos (NEG) Laboratory Tests Test 08/15/21 20:47 08/16/21 00:15 08/16/21 04:00 White Blood Count 8.4 x10^3/uL (4.0-11.0) Red Blood Count 3.63 x10^6/uL (4.30-5.70) Hemoglobin 13.2 g/dL (13.0-17.5) Hematocrit 37.9 % (39.0-53.0) Mean Corpuscular Volume 104 fL (79-100) Mean Corpuscular Hemoglobin 36 pg (25-35) Mean Corpuscular Hemoglobin Concent 35 g/dL (31-37) Red Cell Distribution Width 12.8 % (11.5-14.5) Platelet Count 285 x10^3/uL (140-400) Neutrophils (%) (Auto) 37 % (31-73) Lymphocytes (%) (Auto) 45 % (24-48) Monocytes (%) (Auto) 14 % (0-9) Eosinophils (%) (Auto) 3 % (0-3) Basophils (%) (Auto) 1 % (0-3) Neutrophils # (Auto) 3.1 x10^3/uL (1.8-7.7) Lymphocytes # (Auto) 3.8 x10^3/uL (1.0-4.8) Monocytes # (Auto) 1.1 x10^3/uL (0.0-1.1) Eosinophils # (Auto) 0.3 x10^3/uL (0.0-0.7) Basophils # (Auto) 0.1 x10^3/uL (0.0-0.2) Prothrombin Time 12.5 SEC (11.7-14.0) Prothromb Time International Ratio 0.9 (0.8-1.1) Activated Partial Thromboplast Time 31 SEC (24-38) Sodium Level 132 mmol/L (136-145) Potassium Level 3.9 mmol/L (3.5-5.1) Chloride Level 97 mmol/L (98-107) Carbon Dioxide Level 26 mmol/L (21-32) Anion Gap 9 (6-14) Blood Urea Nitrogen 7 mg/dL (8-26) Creatinine 0.7 mg/dL (0.7-1.3) Estimated GFR (Cockcroft-Gault) 110.5 BUN/Creatinine Ratio 10 (6-20) Glucose Level 79 mg/dL (70-99) Calcium Level 8.3 mg/dL (8.5-10.1) Total Bilirubin 0.4 mg/dL (0.2-1.0) Aspartate Amino Transf (AST/SGOT) 30 U/L (15-37) Alanine Aminotransferase (ALT/SGPT) 23 U/L (16-63) Alkaline Phosphatase 71 U/L (46-116) Troponin I High Sensitivity 8 ng/L (4-75) 20 ng/L (4-75) Total Protein 7.1 g/dL (6.4-8.2) Albumin 3.3 g/dL (3.4-5.0) Albumin/Globulin Ratio 0.9 (1.0-1.7) Ethyl Alcohol Level 235 mg/dL (0-10) Urine Collection Type Void Urine Color Yellow Urine Clarity Clear Urine pH 6.0 (<5.0-8.0) Urine Specific [place] <=1.005 (1.000-1.030) Urine Protein Negative mg/dL (NEG-TRACE) Urine Glucose (UA) Negative mg/dL (NEG) Urine Ketones (Stick) Negative mg/dL (NEG) Urine Blood Moderate (NEG) Urine Nitrite Negative (NEG) Urine Bilirubin Negative (NEG) Urine Urobilinogen Dipstick 0.2 mg/dL (0.2 mg/dL) Urine Leukocyte Esterase Negative (NEG) Urine RBC 1-2 /HPF (0-2) Urine WBC 0 /HPF (0-4) Urine Squamous Epithelial Cells None /LPF Urine Bacteria 0 /HPF (0-FEW) Urine Opiates Screen Neg (NEG) Urine Methadone Screen Neg (NEG) Urine Barbiturates Neg (NEG) Urine Phencyclidine Screen Neg (NEG) Urine Amphetamine/Methamphetamine Neg (NEG) Urine Benzodiazepines Screen Neg (NEG) Urine Cocaine Screen Neg (NEG) Urine Cannabinoids Screen Neg (NEG) Urine Ethyl Alcohol Pos (NEG) Images Images CT head and cervical spine without IV contrast. INDICATION:71 years, Male, fall, syncope. COMPARISON: None TECHNIQUE: Spiral acquisition of contiguous images from the skull base to the vertex were obtained. CT of the cervical spine was obtained using contiguous spiral imaging from the skull base to the upper thoracic level. Sagittal and coronal 2D reformatted series were provided by the technologist. Soft tissue and bone window algorithms were reviewed. Exposure: One or more of the following individualized dose reduction techniques were utilized for this examination: 1. Automated exposure control 2. Adjustment of the mA and/or kV according to patient size 3. Use of iterative reconstruction technique. FINDINGS: CT HEAD: Moderate brain parenchymal volume loss. Supratentorial periventricular white blood hypodensities, indeterminate but most likely representing chronic microangiopathic disease. Area of encephalomalacia in the right frontal lobe, likely secondary to previous insult. Neither mass, midline shift, intracranial hemorrhage, acute/subacute ischemic changes, nor extraaxial fluid collections are seen. The paranasal sinuses, mastoid air cells, and middle ears are clear. The orbital contents appear within normal limits. Small right frontal scalp hematoma with skin brie. CT CERVICAL SPINE: Anatomic alignment of the cervical spine is maintained. Neither fracture, subluxation, nor traumatic spondylolisthesis is seen. The vertebral body heights are preserved. Severe multilevel degenerative changes with degenerative loss of vertebral body height, severe disc space narrowing, severe endplate erosions with sclerosis and large osteophytes, worst at C5-6. Severe multilevel bilateral facet and uncovertebral arthropathy. There is no evidence of a large intraspinal hematoma. The prevertebral and paravertebral soft tissues are within normal limits. Right apical pleural thickening/scarring. IMPRESSION: 1. No acute intracranial abnormality. 2. Small right frontal scalp hematoma with skin brie. 3. No acute fracture of the cervical spine. 4. Severe multilevel degenerative changes of the cervical spine. CTA HEAD AND NECK W/WO CONTRAST INDICATION:71 years, Male, difficulty ambulating. TECHNIQUE: After bolus of intravenous contrast, volumetric CT data acquisition was acquired of the head and neck. Multiplanar reconstruction images to include MIP and 3-D reconstruction images are submitted. Exposure: One or more of the following individualized dose reduction techniques were utilized for this examination: 1. Automated exposure control 2. Adjustment of the mA and/or kV according to patient size 3. Use of iterative reconstruction technique. COMPARISON: PET/CT dated 11/07/2018 FINDINGS: Any determination of stenosis is based on NASCET criteria. Head CTA: ICA: No stenosis, occlusion or aneurysm. Mild atherosclerotic calcifications in the cavernous segments. MCA: No stenosis, occlusion or aneurysm. EBENEZER: No stenosis, occlusion or aneurysm. RFID SYSTEMS ENGINEER: No stenosis, occlusion or aneurysm. origin of bilateral procurement assistant. Basilar artery: No stenosis, occlusion or aneurysm. Distal vertebral arteries: No stenosis, occlusion or aneurysm. CT angiogram neck: Aortic arch: Bovine type. Common carotid arteries: No stenosis, occlusion or dissection. Internal carotid arteries: No stenosis, occlusion or dissection. Mild athe rosclerotic calcifications causing less than 20 percent diameter reduction. External carotid arteries: Patent Vertebral arteries: No stenosis, occlusion or dissection. Imaged lung apices demonstrate pleural-based irregular left upper lobe pulmonary nodule measures 8 mm (series 3 image 48), essentially unchanged since prior exam. Similar biapical pleural thickening. Unchanged solid pulmonary nodule in the right upper lobe (series 3 image 47). Unchanged 3 mm solid pulmonary nodule in the right upper lobe (series 3 image 17). Moderate centrilobular and paraseptal emphysema. Soft tissues appear normal. Bones: No pathologic osseous lesions. Severe multilevel degenerative changes in the spine. IMPRESSION: 1. No significant stenosis or occlusion is identified of the intracranial or extracranial arterial vasculature. 2. Stable biapical pulmonary nodules since June 2019, largest 8mm is pleural-based in the left upper lobe. 3. Moderate centrilobular and paraseptal emphysema. Assessment/Plan Assessment/Plan Impression: No evidence of a stroke, the gait ataxia without appendicular ataxia is consistent with his abuse of alcohol. Acute alcohol intoxication, no sign of acute withdrawal Concussion, head injury History of prior strokes from which he made a full recovery. History of atrial fibrillation and coronary artery disease with myocardial infarction Hyponatremia, hypochloremia, hypocalcemia at admission Recommendations: See how he does with a day or 2 of observation and physical therapy Hold off on MRI, this would be complicated because of the pacemaker Alcohol withdrawal prophylaxis. We will need to make a decision regarding risks versus benefits of continuing on the apixaban, okay to use it for now. Thank you for letting me help with the patient's care. ISAI SAMS MD Aug 16, 2021 13:21
--- NOTE | 2021-08-16 15:17 | NUR ---
Assumed pt care at this time. Pt in bed watching tv. Denied any needs. Call light within reach.
[2021-08-16] MEDS: MIRTAZAPINE 15 MG TABLET PO SCH (21:19)
[2021-08-16] MEDS: ATORVASTATIN CALCIUM 40 MG TABLET. PO SCH (21:19)
[2021-08-17 03:00] VITALS: BP 121/62
[2021-08-17 05:01] LABS: BASO % 1 % (0-3); EOS # 0.2 x10^3/uL (0.0-0.7); EOS % 3 % (0-3); HEMATOCRIT 37.3 % (39.0-53.0); HEMOGLOBIN 12.6 g/dL (13.0-17.5); LYMPH # 2.5 x10^3/uL (1.0-4.8); LYMPH % 29 % (24-48); MEAN CORPUSCULAR HEMOGLOBIN 36 pg (25-35); MEAN CORPUSCULAR HGB CONC 34 g/dL (31-37); MEAN CORPUSCULAR VOLUME 107 fL (79-100); MONO # 1.5 x10^3/uL (0.0-1.1); MONO % 17 % (0-9); NEUT # 4.4 x10^3/uL (1.8-7.7); NEUT % 50 % (31-73); PLATELET COUNT 239 x10^3/uL (140-400); RED CELL DISTRIBUTION WIDTH 13.1 % (11.5-14.5); WHITE BLOOD COUNT 8.7 x10^3/uL (4.0-11.0)
[2021-08-17 05:41] LABS: CALCIUM 8.1 mg/dL (8.5-10.1); CREATININE 0.5 mg/dL (0.7-1.3); MAGNESIUM 1.8 mg/dL (1.8-2.4); PHOSPHORUS 3.3 mg/dL (2.6-4.7)
[2021-08-17 05:43] LABS: POTASSIUM 3.6 mmol/L (3.5-5.1)
[2021-08-17 07:00] VITALS: BP 143/85
[2021-08-17] MEDS: IPRATRPIUM/ALBUTEROL 0.5/2.5MG 3 ML NEBU. NEB SCH ×4 (07:41→18:36)
[2021-08-17] MEDS: ASPIRIN ENTERIC COATED 81 MG TABLET.DR. PO SCH (08:06)
[2021-08-17] MEDS: THIAMINE 100 MG TABLET. PO SCH (08:06)
[2021-08-17] MEDS: PANTOPRAZOLE 40 MG TABLET.DR. PO SCH (08:06)
[2021-08-17] MEDS: APIXABAN 5 MG TABLET. PO SCH ×2 (08:06→21:27)
[2021-08-17] MEDS: FOLIC ACID 1 MG TABLET. PO SCH (08:06)
[2021-08-17] MEDS: METOPROLOL SUCC 24HR ER 25 MG TAB.ER.24H. PO SCH (09:19)
[2021-08-17 11:00] VITALS: BP 93/56
--- NOTE | 2021-08-17 12:39 | PDOC ---
[facility] PROGRESS NOTE Date of Service DOS: DATE: 08/17/21 TIME: 12:37 Chief Complaint Chief Complaint Assessment/Plan Mechanical fall with scalp hematoma Acute alcohol intoxication Macrocytic anemia Acute electrolyte derangementhyponatremia, hypochloremia, hypocalcemia due to volume depletion Questionable syncope due to vasovagal etiology, orthostatic hypotension, cardiovascular etiology Admit to medicine for further work-up Pending neurology consult Cardiology consult Pending echocardiogram Continue telemetry monitoring Fall precautions Orthostatic vital signs Hold all centrally acting medications Pending medication reconciliation Pending vitamin B-12 levels Supplementation with folic acid and thiamine Eliquis for DVT prophylaxis Cardiac diet Full code Discussed with RN and SW Disposition inpatient management as above Surrogate decision maker is the History of Present Illness History of Present Illness 71-year-old male with past medical history of hypertension, dyslipidemia, pacemaker placement done at for unknown reasons and history of prior stroke. Patient states that he had the whole stroke work-up but is unsure if he had atrial fibrillation or any coronary heart disease. Patient is also on Eliquis but does not know why. He is brought in by EMS after patient suffered a fall in the garage. Patient states that he was walking towards the garage and he tripped and fell and hit his forehead on a concrete floor. There was blood there and he was tried to call for his to help him up. Patient is unsure of whether he lost consciousness or not. He denies any dizziness or near syncope moments before the fall. EMS states that patient was weak on both legs and having trouble walking. Upon my examination and encounter, patient is alert and oriented, moving all extremities equally and in no acute distress, with appropriate vital signs. Bandages on his forehead are dry blood and no active bleeding. Patient states he was in his normal state of health and was ambulatory prior to going out to the garage. He states he does not know why he fell. He denies fevers, nausea or vomiting, headache, focal or lateralizing weakness, numbness or tingling, neck stiffness/pain/meningismus, vision changes, shortness of breath or chest pain either prior to, during or after the fall, abdominal pain of any kind, flank pain, midline back pain, dysuria, hematuria, polyuria or oliguria, changes in bowel habits, pain or swelling to arms or legs. 08/17/2021 No acute events overnight. Patient seen and examined bedside. Nurse and physic al therapy reported instability during standing and needing walker during therapy session. Pending echocardiogram. Will restart Eliquis. Patient's chart, labs, images were reviewed and discussed with RN Vitals/I&O Vitals/I&O: Vital Signs Date Time Temp Pulse Resp B/P (MAP) Pulse Ox O2 Delivery O2 Flow Rate FiO2 08/17/21 09:19 74 143/85 08/17/21 08:12 Room Air 08/17/21 07:00 97.8 17 98 97.8 I & O 08/16/21 08/16/21 08/17/21 15:00 23:00 07:00 Intake Total 400 ml 120 ml 0 ml Output Total 350 ml 700 ml 100 ml Balance 50 ml -580 ml -100 ml Physical Exam General: Alert, Oriented X3, Cooperative Heart: Regular rate Lungs: Clear Abdomen: Normal bowel sounds Extremities: No clubbing Labs Labs: Laboratory Tests Test 08/17/21 04:30 White Blood Count 8.7 x10^3/uL (4.0-11.0) Red Blood Count 3.50 x10^6/uL (4.30-5.70) Hemoglobin 12.6 g/dL (13.0-17.5) Hematocrit 37.3 % (39.0-53.0) Mean Corpuscular Volume 107 fL (79-100) Mean Corpuscular Hemoglobin 36 pg (25-35) Mean Corpuscular Hemoglobin Concent 34 g/dL (31-37) Red Cell Distribution Width 13.1 % (11.5-14.5) Platelet Count 239 x10^3/uL (140-400) Neutrophils (%) (Auto) 50 % (31-73) Lymphocytes (%) (Auto) 29 % (24-48) Monocytes (%) (Auto) 17 % (0-9) Eosinophils (%) (Auto) 3 % (0-3) Basophils (%) (Auto) 1 % (0-3) Neutrophils # (Auto) 4.4 x10^3/uL (1.8-7.7) Lymphocytes # (Auto) 2.5 x10^3/uL (1.0-4.8) Monocytes # (Auto) 1.5 x10^3/uL (0.0-1.1) Eosinophils # (Auto) 0.2 x10^3/uL (0.0-0.7) Basophils # (Auto) 0.0 x10^3/uL (0.0-0.2) Sodium Level 140 mmol/L (136-145) Potassium Level 3.6 mmol/L (3.5-5.1) Chloride Level 106 mmol/L (98-107) Carbon Dioxide Level 23 mmol/L (21-32) Anion Gap 11 (6-14) Blood Urea Nitrogen 6 mg/dL (8-26) Creatinine 0.5 mg/dL (0.7-1.3) Estimated GFR (Cockcroft-Gault) 163.0 Glucose Level 78 mg/dL (70-99) Calcium Level 8.1 mg/dL (8.5-10.1) Phosphorus Level 3.3 mg/dL (2.6-4.7) Magnesium Level 1.8 mg/dL (1.8-2.4) Creatine Kinase 291 U/L (39-308) Assessment and Plan Assessmemt and Plan Problems Medical Problems: (1) Bilateral leg weakness Status: Acute Comment Review of Relevant I have reviewed the following items boyd (where applicable) has been applied. Medications: Current Medications Medications (Trade) Dose Ordered Sig/[place] Route PRN Reason Start Time Stop Time Status Last Admin Dose Admin Atorvastatin Calcium (Lipitor) 40 mg QHS PO 08/16/21 21:00 08/16/21 21:19 Mirtazapine (Remeron) 15 mg QHS PO 08/16/21 21:00 08/16/21 21:19 Justifications for Admission Other Justification Fall and acute alcohol intoxication GHAZALA ERNST MD Aug 17, 2021 12:39
[2021-08-17 15:00] VITALS: BP 104/47
--- NOTE | 2021-08-17 15:49 | PDOC ---
CARDIOLOGY PROGRESS NOTE SUBJECTIVE: No acute events overnight. Denies any chest pain. OBJECTIVE: Vital Signs/I&O: Vital Signs Date Time Temp Pulse Resp B/P (MAP) Pulse Ox O2 Delivery O2 Flow Rate FiO2 08/17/21 11:00 97.7 75 17 93/56 (68) 96 Room Air 97.7 I & O 08/16/21 08/16/21 08/17/21 15:00 23:00 07:00 Intake Total 400 ml 120 ml 0 ml Output Total 350 ml 700 ml 100 ml Balance 50 ml -580 ml -100 ml Objective: GENERAL: He is alert and oriented to self and place, but not to time. HEAD AND NECK: Notable for mild ecchymoses on his forehead with laceration with brie that are intact. Pupils are equal and reactive. NECK: Unremarkable. CARDIAC: Regular rate and rhythm without any obvious murmurs. LUNGS: Clear to auscultation bilaterally. ABDOMEN: Soft, nontender, nondistended. EXTREMITIES: No obvious clubbing, cyanosis or edema with 2+ pulses. NEUROLOGIC: No focal deficits. MUSCULOSKELETAL: No trauma. CURRENT MEDICATIONS: Atorvastatin, Eliquis, metoprolol and aspirin DIAGNOSTIC TESTING: No new testing Labs: Laboratory Tests 08/17/21 04:30 Laboratory Tests Test 08/17/21 04:30 White Blood Count 8.7 x10^3/uL (4.0-11.0) Red Blood Count 3.50 x10^6/uL (4.30-5.70) L Hemoglobin 12.6 g/dL (13.0-17.5) L Hematocrit 37.3 % (39.0-53.0) L Mean Corpuscular Volume 107 fL (79-100) H Mean Corpuscular Hemoglobin 36 pg (25-35) H Mean Corpuscular Hemoglobin Concent 34 g/dL (31-37) Red Cell Distribution Width 13.1 % (11.5-14.5) Platelet Count 239 x10^3/uL (140-400) Neutrophils (%) (Auto) 50 % (31-73) Lymphocytes (%) (Auto) 29 % (24-48) Monocytes (%) (Auto) 17 % (0-9) H Eosinophils (%) (Auto) 3 % (0-3) Basophils (%) (Auto) 1 % (0-3) Neutrophils # (Auto) 4.4 x10^3/uL (1.8-7.7) Lymphocytes # (Auto) 2.5 x10^3/uL (1.0-4.8) Monocytes # (Auto) 1.5 x10^3/uL (0.0-1.1) H Eosinophils # (Auto) 0.2 x10^3/uL (0.0-0.7) Basophils # (Auto) 0.0 x10^3/uL (0.0-0.2) Sodium Level 140 mmol/L (136-145) Potassium Level 3.6 mmol/L (3.5-5.1) Chloride Level 106 mmol/L (98-107) Carbon Dioxide Level 23 mmol/L (21-32) Anion Gap 11 (6-14) Blood Urea Nitrogen 6 mg/dL (8-26) L Creatinine 0.5 mg/dL (0.7-1.3) L Estimated GFR (Cockcroft-Gault) 163.0 Glucose Level 78 mg/dL (70-99) Calcium Level 8.1 mg/dL (8.5-10.1) L Phosphorus Level 3.3 mg/dL (2.6-4.7) Creatine Kinase 291 U/L (39-308) ASSESSMENT: 1. Gait instability due to alcohol abuse 2. History of pacemaker for paroxysmal atrial fibrillation and tachybradycardia syndrome 3. History of nonischemic cardiomyopathy and type II non-STEMI 4. History of CVA on anticoagulation PLAN: 1. Continue current medical therapy. No further cardiac testing necessary at this time. Follow-up with primary slip maker and consider outpatient echocardiogram. Discussed with patient and nursing staff. Justicifation of Admission Dx: Justifications for Admission: Justification of Admission Dx: N/A ANDRIA HUTTON MD Aug 17, 2021 15:49
[2021-08-17 19:37] VITALS: BP 126/74
[2021-08-17] MEDS: ATORVASTATIN CALCIUM 40 MG TABLET. PO SCH (21:27)
[2021-08-17] MEDS: MIRTAZAPINE 15 MG TABLET PO SCH (21:27)
[2021-08-17 23:22] VITALS: BP 126/66
[2021-08-18 03:02] VITALS: BP 128/76
[2021-08-18 07:15] VITALS: BP 116/62
[2021-08-18 07:47] LABS: BASO # 0.1 x10^3/uL (0.0-0.2); BASO % 1 % (0-3); EOS # 0.2 x10^3/uL (0.0-0.7); EOS % 3 % (0-3); HEMATOCRIT 35.5 % (39.0-53.0); LYMPH # 2.2 x10^3/uL (1.0-4.8); LYMPH % 28 % (24-48); MEAN CORPUSCULAR HEMOGLOBIN 35 pg (25-35); MEAN CORPUSCULAR HGB CONC 34 g/dL (31-37); MEAN CORPUSCULAR VOLUME 104 fL (79-100); MONO # 1.3 x10^3/uL (0.0-1.1); MONO % 16 % (0-9); NEUT # 4.1 x10^3/uL (1.8-7.7); NEUT % 52 % (31-73); PLATELET COUNT 252 x10^3/uL (140-400); RED CELL DISTRIBUTION WIDTH 12.9 % (11.5-14.5); WHITE BLOOD COUNT 7.9 x10^3/uL (4.0-11.0)
[2021-08-18] MEDS: IPRATRPIUM/ALBUTEROL 0.5/2.5MG 3 ML NEBU. NEB SCH ×2 (08:00→12:00)
[2021-08-18 08:29] LABS: CALCIUM 8.2 mg/dL (8.5-10.1); CREATININE 0.6 mg/dL (0.7-1.3); GFR 132.1; MAGNESIUM 1.7 mg/dL (1.8-2.4)
[2021-08-18] MEDS: PANTOPRAZOLE 40 MG TABLET.DR. PO SCH (08:30)
[2021-08-18] MEDS: FOLIC ACID 1 MG TABLET. PO SCH (08:30)
[2021-08-18] MEDS: APIXABAN 5 MG TABLET. PO SCH (08:30)
[2021-08-18] MEDS: ASPIRIN ENTERIC COATED 81 MG TABLET.DR. PO SCH (08:30)
[2021-08-18] MEDS: METOPROLOL SUCC 24HR ER 25 MG TAB.ER.24H. PO SCH (08:31)
[2021-08-18] MEDS: THIAMINE 100 MG TABLET. PO SCH (08:31)
--- NOTE | 2021-08-18 08:56 | PDOC ---
PROGRESS NOTES Date of Service DATE: 08/18/21 TIME: 08:54 Assessment Problems Medical Problems: (1) Bilateral leg weakness Status: Acute No evidence of a stroke, the gait ataxia without appendicular ataxia is consistent with his abuse of alcohol. Acute alcohol intoxication, no sign of acute withdrawal Concussion, head injury History of prior strokes from which he made a full recovery. History of atrial fibrillation and coronary artery disease with myocardial infarction Hyponatremia, hypochloremia, hypocalcemia at admission Plan Needs snf unit No need for MRI Alcohol withdrawal prophylaxis. We will need to make a decision regarding risks versus benefits of continuing on the apixaban, okay to use it for now. Subjective No complaints, denies headache Objective Vital Signs Date Time Temp Pulse Resp B/P (MAP) Pulse Ox O2 Delivery O2 Flow Rate FiO2 08/18/21 08:31 60 116/62 08/18/21 07:47 Room Air 08/18/21 07:15 97.9 18 96 97.9 Intake and Output 08/18/21 07:00 Intake Total 800 ml Output Total 500 ml Balance 300 ml Intake Oral 800 ml Output Urine Total 500 ml PHYSICAL EXAM Alert. Oriented to time, place and person. PERRL. EOMI. CN: no focal findings. Muscle tone: normal. Muscle strength: 5/5 DTR: 2+ Plantar reflex: Flexor Gait: not examined in bed. Sensory exam: no abnormal findings. No cerebellar signs elicited. Review of Relevant I have reviewed the following items boyd (where applicable) has been applied. Labs Laboratory Tests Test 08/17/21 04:30 08/18/21 06:20 White Blood Count 8.7 x10^3/uL (4.0-11.0) 7.9 x10^3/uL (4.0-11.0) Red Blood Count 3.50 x10^6/uL (4.30-5.70) 3.40 x10^6/uL (4.30-5.70) Hemoglobin 12.6 g/dL (13.0-17.5) 12.0 g/dL (13.0-17.5) Hematocrit 37.3 % (39.0-53.0) 35.5 % (39.0-53.0) Mean Corpuscular Volume 107 fL (79-100) 104 fL (79-100) Mean Corpuscular Hemoglobin 36 pg (25-35) 35 pg (25-35) Mean Corpuscular Hemoglobin Concent 34 g/dL (31-37) 34 g/dL (31-37) Red Cell Distribution Width 13.1 % (11.5-14.5) 12.9 % (11.5-14.5) Platelet Count 239 x10^3/uL (140-400) 252 x10^3/uL (140-400) Neutrophils (%) (Auto) 50 % (31-73) 52 % (31-73) Lymphocytes (%) (Auto) 29 % (24-48) 28 % (24-48) Monocytes (%) (Auto) 17 % (0-9) 16 % (0-9) Eosinophils (%) (Auto) 3 % (0-3) 3 % (0-3) Basophils (%) (Auto) 1 % (0-3) 1 % (0-3) Neutrophils # (Auto) 4.4 x10^3/uL (1.8-7.7) 4.1 x10^3/uL (1.8-7.7) Lymphocytes # (Auto) 2.5 x10^3/uL (1.0-4.8) 2.2 x10^3/uL (1.0-4.8) Monocytes # (Auto) 1.5 x10^3/uL (0.0-1.1) 1.3 x10^3/uL (0.0-1.1) Eosinophils # (Auto) 0.2 x10^3/uL (0.0-0.7) 0.2 x10^3/uL (0.0-0.7) Basophils # (Auto) 0.0 x10^3/uL (0.0-0.2) 0.1 x10^3/uL (0.0-0.2) Sodium Level 140 mmol/L (136-145) 137 mmol/L (136-145) Potassium Level 3.6 mmol/L (3.5-5.1) 3.0 mmol/L (3.5-5.1) Chloride Level 106 mmol/L (98-107) 103 mmol/L (98-107) Carbon Dioxide Level 23 mmol/L (21-32) 26 mmol/L (21-32) Anion Gap 11 (6-14) 8 (6-14) Blood Urea Nitrogen 6 mg/dL (8-26) 6 mg/dL (8-26) Creatinine 0.5 mg/dL (0.7-1.3) 0.6 mg/dL (0.7-1.3) Estimated GFR (Cockcroft-Gault) 163.0 132.1 Glucose Level 78 mg/dL (70-99) 78 mg/dL (70-99) Calcium Level 8.1 mg/dL (8.5-10.1) 8.2 mg/dL (8.5-10.1) Phosphorus Level 3.3 mg/dL (2.6-4.7) Magnesium Level 1.8 mg/dL (1.8-2.4) 1.7 mg/dL (1.8-2.4) Creatine Kinase 291 U/L (39-308) Laboratory Tests Test 08/18/21 06:20 White Blood Count 7.9 x10^3/uL (4.0-11.0) Red Blood Count 3.40 x10^6/uL (4.30-5.70) Hemoglobin 12.0 g/dL (13.0-17.5) Hematocrit 35.5 % (39.0-53.0) Mean Corpuscular Volume 104 fL (79-100) Mean Corpuscular Hemoglobin 35 pg (25-35) Mean Corpuscular Hemoglobin Concent 34 g/dL (31-37) Red Cell Distribution Width 12.9 % (11.5-14.5) Platelet Count 252 x10^3/uL (140-400) Neutrophils (%) (Auto) 52 % (31-73) Lymphocytes (%) (Auto) 28 % (24-48) Monocytes (%) (Auto) 16 % (0-9) Eosinophils (%) (Auto) 3 % (0-3) Basophils (%) (Auto) 1 % (0-3) Neutrophils # (Auto) 4.1 x10^3/uL (1.8-7.7) Lymphocytes # (Auto) 2.2 x10^3/uL (1.0-4.8) Monocytes # (Auto) 1.3 x10^3/uL (0.0-1.1) Eosinophils # (Auto) 0.2 x10^3/uL (0.0-0.7) Basophils # (Auto) 0.1 x10^3/uL (0.0-0.2) Sodium Level 137 mmol/L (136-145) Potassium Level 3.0 mmol/L (3.5-5.1) Chloride Level 103 mmol/L (98-107) Carbon Dioxide Level 26 mmol/L (21-32) Anion Gap 8 (6-14) Blood Urea Nitrogen 6 mg/dL (8-26) Creatinine 0.6 mg/dL (0.7-1.3) Estimated GFR (Cockcroft-Gault) 132.1 Glucose Level 78 mg/dL (70-99) Calcium Level 8.2 mg/dL (8.5-10.1) Magnesium Level 1.7 mg/dL (1.8-2.4) Medications Current Medications Acetaminophen (Tylenol) 1,000 mg 1X ONCE PO Last administered on 08/15/21at 22:53; Start 08/15/21 at 20:45; Stop 08/15/21 at 22:28; Status DC Sodium Chloride 1,000 ml @ 1,000 mls/hr 1X ONCE IV Last administered on 08/15/21at 22:52; Start 08/15/21 at 20:45; Stop 08/15/21 at 22:28; Status DC Thiamine HCl 500 mg/Dextrose 55 ml @ 102 mls/hr 1X ONCE IV Last administered on 08/15/21at 22:52; Start 08/15/21 at 22:45; Stop 08/15/21 at 23:17; Status DC Multivit/ Folic Acid/Iron (Multivitamin ) 1 tab 1X ONCE PO Last administered on 08/15/21at 22:52; Start 08/15/21 at 22:45; Stop 08/15/21 at 22:46; Status DC Iohexol (Omnipaque 350 Mg/ml) 75 ml 1X ONCE IV ; Start 08/15/21 at 22:45; Stop 08/15/21 at 22:46; Status DC Info (CONTRAST GIVEN -- Rx MONITORING) 1 each PRN DAILY PRN MC SEE COMMENTS; Start 08/15/21 at 22:45; Stop 08/17/21 at 22:44; Status DC Diphtheria/ Tetanus/Acell Pertussis (Boostrix) 0.5 ml ONCE ONCE VAX IM Last administered on 08/15/21at 23:38; Start 08/15/21 at 23:00; Stop 08/15/21 at 23:01; Status DC Ondansetron HCl (Zofran) 4 mg PRN Q8HRS PRN IVP NAUSEA/VOMITING; Start 08/16/21 at 00:30; Stop 08/17/21 at 00:29; Status DC Sodium Chloride 1,000 ml @ 75 mls/hr [id number] IV Last administered on 08/16/21at 04:26; Start 08/16/21 at 00:30; Stop 08/17/21 at 00:29; Status DC Apixaban (Eliquis) 5 mg BID PO Last administered on 08/18/21at 08:30; Start 08/16/21 at 09:00 Aspirin (Ecotrin) 81 mg DAILY08 PO Last administered on 08/18/21at 08:30; Start 08/16/21 at 08:00 Atorvastatin Calcium (Lipitor) 40 mg QHS PO Last administered on 08/17/21at 21:27; Start 08/16/21 at 21:00 Metoprolol Succinate (Toprol Xl) 25 mg DAILY PO Last administered on 08/18/21at 08:31; Start 08/16/21 at 09:00 Mirtazapine (Remeron) 15 mg QHS PO Last administered on 08/17/21at 21:27; Start 08/16/21 at 21:00 Ondansetron HCl (Zofran Odt) 4 mg PRN QID PRN PO NAUSEA/VOMITING; Start at 09:00 Pantoprazole Sodium (Protonix) 40 mg DAILYAC PO Last administered on 08/18/21at 08:30; Start 08/16/21 at 07:30 Albuterol/ Ipratropium (Duoneb) 3 ml RTQID NEB Last administered on 08/16/21at 20:00; Start 08/16/21 at 08:00 Multivitamins (Thera M Plus) 1 tab DAILY PO ; Start 08/21/21 at 09:00 Folic Acid (Folic Acid) 1 mg DAILY PO ; Start 08/21/21 at 09:00; Stop 08/16/21 at 09:30; Status DC Thiamine Mononitrate (Vitamin B-1) 100 mg DAILY PO ; Start 08/21/21 at 09:00; Stop 08/16/21 at 09:30; Status DC Lorazepam (Ativan) 4 mg PRN Q1HR PRN PO For CIWA 8-14; Start 08/16/21 at 05:15 Lorazepam (Ativan) 8 mg PRN Q1HR PRN PO For CIWA 15 or greater; Start 08/16/21 at 05:15 Sennosides (Senna) 17.2 mg PRN BID PRN PO CONSTIPATION; Start 08/16/21 at 09:30 Docusate Sodium (Colace) 100 mg PRN DAILY PRN PO HARD STOOLS; Start 08/16/21 at 09:30 Ondansetron HCl (Zofran) 4 mg PRN Q6HRS PRN IVP NAUSEA/VOMITING, 1st CHOICE; Start 08/16/21 at 09:30 Dextrose (Dextrose 50%-Water Syringe) 12.5 gm PRN Q15MIN PRN IV SEE COMMENTS; Start 08/16/21 at 09:30 Acetaminophen (Tylenol) 650 mg PRN Q4HRS PRN PO TEMP OVER 100.4F OR MILD PAIN; Start 08/16/21 at 09:30 Lorazepam (Ativan) 0.5 mg PRN Q6HRS PRN PO ANXIETY / AGITATION; Start 08/16/21 at 09:30 Lorazepam (Ativan Inj) 0.25 mg PRN Q4HRS PRN IV ANXIETY / AGITATION; Start 08/16/21 at 09:30 Prochlorperazine Edisylate (Compazine) 10 mg PRN Q6HRS PRN IV NAUSEA/VOMITING, 2nd CHOICE; Start 08/16/21 at 09:30 Diphenhydramine HCl (Benadryl) 25 mg PRN Q6HRS PRN IVP ITCHING; Start 08/16/21 at 09:30 Diphenhydramine HCl (Benadryl) 25 mg PRN Q6HRS PRN PO ITCHING; Start 08/16/21 at 09:30 Diphenhydramine HCl (Benadryl) 25 mg PRN QHS PRN PO INSOMNIA, 1st CHOICE; Start 08/16/21 at 09:30 Zolpidem Tartrate (Ambien) 2.5 mg PRN QHS PRN PO INSOMNIA, 2nd CHOICE; Start 08/16/21 at 09:30 Thiamine Mononitrate (Vitamin B-1) 300 mg DAILY PO Last administered on 08/18/21at 08:31; Start 08/16/21 at 10:30 Folic Acid (Folic Acid) 1 mg DAILY PO Last administered on 08/18/21at 08:30; Start 08/16/21 at 10:30 Active Scripts Active Reported Spiriva (Tiotropium [place]) 18 Mcg Cap.w.dev 2 Inh IH DAILY [budesonide] Unknown Strength Unknown Dose INH Ondansetron Odt (Ondansetron) 4 Mg Tab.rapdis 1 Tab PO QID Omeprazole 20 Mg Tablet.dr 1 Tab PO DAILY Aspirin Ec (Aspirin) 81 Mg Tablet.dr 1 Tab PO DAILY Metoprolol Succinate ( Xl ) (Metoprolol Succinate) 25 Mg Tab.er.24h 1 Tab PO DAILY Eliquis (Apixaban) 5 Mg Tablet 5 Mg PO BID Atorvastatin Calcium 40 Mg Tablet 1 Tab PO QHS Mirtazapine 15 Mg Tablet 1 Tab PO QHS Vitals/I & O Vital Sign - Last 24 Hours 08/17/21 08/17/21 08/17/21 08/17/21 09:19 11:00 15:00 19:37 Temp 97.7 98.2 97.5 97.7 98.2 97.5 Pulse 74 75 68 78 Resp 17 18 18 B/P (MAP) 143/85 93/56 (68) 104/47 (66) 126/74 (91) Pulse Ox 96 95 96 O2 Delivery Room Air Room Air Room Air 08/17/21 08/17/21 08/18/21 08/18/21 21:30 23:22 03:02 07:15 Temp 98.7 98.4 97.9 98.7 98.4 97.9 Pulse 82 60 60 Resp 18 18 18 B/P (MAP) 126/66 (86) 128/76 (93) 116/62 (80) Pulse Ox 96 97 96 O2 Delivery Room Air Room Air Room Air Room Air 08/18/21 08/18/21 07:47 08:31 Pulse 60 B/P (MAP) 116/62 O2 Delivery Room Air Intake and Output 08/17/21 08/17/21 08/18/21 15:00 23:00 07:00 Intake Total 600 ml 200 ml Output Total 50 ml 450 ml Balance 600 ml -50 ml -250 ml Justicifation of Admission Dx: Justifications for Admission: Justification of Admission Dx: N/A ISAI SAMS MD Aug 18, 2021 08:56
[2021-08-18] MEDS ORDERED: POTASSIUM CHLORIDE 20 MEQ TABLET.ER. PO SCH (10:00)
[2021-08-18 11:16] VITALS: BP 107/77
--- NOTE | 2021-08-18 11:39 | PDOC ---
JAYESH FELIX BIODIESEL TECHNOLOGY MANAGER 08/18/21 1139: CARDIO Progress Notes Date and Time Date of Service 08/18/21 Time of Evaluation 1130 Subjective Subjective: No Chest Pain, No shortness of breath, No Palpitations Vitals Vitals Vital Signs Date Time Temp Pulse Resp B/P (MAP) Pulse Ox O2 Delivery O2 Flow Rate FiO2 08/18/21 11:16 97.3 90 20 107/77 (87) 97 Room Air 97.3 Weight Weight [ ] Input and Output Intake and Output Intake and Output 08/18/21 07:00 Intake Total 800 ml Output Total 500 ml Balance 300 ml Intake Oral 800 ml Output Urine Total 500 ml Laboratory Labs Laboratory Tests Test 08/18/21 06:20 White Blood Count 7.9 x10^3/uL (4.0-11.0) Red Blood Count 3.40 x10^6/uL (4.30-5.70) Hemoglobin 12.0 g/dL (13.0-17.5) Hematocrit 35.5 % (39.0-53.0) Mean Corpuscular Volume 104 fL (79-100) Mean Corpuscular Hemoglobin 35 pg (25-35) Mean Corpuscular Hemoglobin Concent 34 g/dL (31-37) Red Cell Distribution Width 12.9 % (11.5-14.5) Platelet Count 252 x10^3/uL (140-400) Neutrophils (%) (Auto) 52 % (31-73) Lymphocytes (%) (Auto) 28 % (24-48) Monocytes (%) (Auto) 16 % (0-9) Eosinophils (%) (Auto) 3 % (0-3) Basophils (%) (Auto) 1 % (0-3) Neutrophils # (Auto) 4.1 x10^3/uL (1.8-7.7) Lymphocytes # (Auto) 2.2 x10^3/uL (1.0-4.8) Monocytes # (Auto) 1.3 x10^3/uL (0.0-1.1) Eosinophils # (Auto) 0.2 x10^3/uL (0.0-0.7) Basophils # (Auto) 0.1 x10^3/uL (0.0-0.2) Sodium Level 137 mmol/L (136-145) Potassium Level 3.0 mmol/L (3.5-5.1) Chloride Level 103 mmol/L (98-107) Carbon Dioxide Level 26 mmol/L (21-32) Anion Gap 8 (6-14) Blood Urea Nitrogen 6 mg/dL (8-26) Creatinine 0.6 mg/dL (0.7-1.3) Estimated GFR (Cockcroft-Gault) 132.1 Glucose Level 78 mg/dL (70-99) Calcium Level 8.2 mg/dL (8.5-10.1) Magnesium Level 1.7 mg/dL (1.8-2.4) Physical Exam HEENT: Neck Supple W Full Motion Chest: Symmetric LUNGS: Clear to Auscultation Heart: RRR Abdomen: Soft N/T Extremities: No Edema Neurology: alert, oriented, follow commands Plan Plan 1. Gait instability due to alcohol abuse 2. SSS s/p PPM 3. Paroxysmal atrial fibrillation; presently SR with intermittent a pacing 3. History of nonischemic cardiomyopathy and type II non-STEMI 4. History of CVA on anticoagulation 5. Hypertension 6. Hyperlipidemia Recommendations Outpatient echocardiogram Consider for LAAO device given AFIB with gait instability, alcohol abuse Follow-up with MAC upon discharge Supportive care Justicifation of Admission Dx: Justifications for Admission: Justification of Admission Dx: N/A ANDRIA HUTTON MD 08/19/21 0807: CARDIO Progress Notes Plan Plan Late entry for 08/18/2021 Patient seen and examined. Agree with above nurse practitioner note. JAYESH FELIX APRN Aug 18, 2021 11:39 ANDRIA HUTTON MD Aug 19, 2021 08:07
[2021-08-18] MEDS ORDERED: ANTI-COAG MONITOR BY PHARMACY. MC PRN (11:45)
[2021-08-18] MEDS ORDERED: MAGNESIUM SULFATE 2GM 50 ML IV ONE (12:00)
[2021-08-18] MEDS ORDERED: CYANOCOBALAMIN (VITAMIN B-12) 1,000 MCG TABLET. PO SCH (12:00)
[2021-08-18] MEDS ORDERED: THIA100T22 PO (12:01)
[2021-08-18] MEDS ORDERED: CYAN-25 PO (12:01)
[2021-08-18] MEDS ORDERED: Folic Acid PO (12:01)
--- NOTE | 2021-08-18 12:02 | SNU/HH DC ---
DISCHARGE WITH HOME HEALTH DISCHARGE INFORMATION: Discharge Date: Aug 18, 2021 Final Diagnosis: Problems Medical Problems: (1) Bilateral leg weakness Status: Acute Condition on Discharge: Stable HOME HEALTH: Face to Face: I certify this patient is under my care and that I, or a nurse practitioner or physician's sales assistant institutional sales working with me, had a face to face encounter that meets the physician face to face encounter requirements with this patient on []. Medical Complications: Falls RN For Eval/Treatment: Yes Physical Therapy For: Evalulation/Treatment Occupational Therapy For: Evaluation/Treatment Home Health Aide For: Self-care Pt Meets Homebound Status: Poor coordination w/ amb., Fatigue w/ amb., Limited distance walking POST DISCHARGE ORDERS: DIET AFTER DISCHARGE: Cardiac FOLLOW-UP: Follow up with: PCP within 2 weeks Follow Up With: Neurology as needed CERTIFICATION STATEMENT: Certification Statement: Certification Statement: Based on the above finding, I certify that this patient is confined to the home and needs intermittent intermediate care, physical therapy and/or speech therapy, or continues to need occupational therapy.~ This patient is under my care, and I have initiated the establishment of the plan of care.~ This patient will be followed by myself or a community physician who will periodically review the plan of care. Home Meds Active Scripts Cyanocobalamin (Vitamin B-12) (VITAMIN B-12) 1,000 Mcg Tablet, 1 TAB PO DAILY for b12 deficiency for 30 Days, #30 TAB 0 Refills Prov:GHAZALA ERNST MD 08/18/21 Thiamine Mononitrate (VITAMIN B-1) 100 Mg Tablet, 300 MG PO DAILY for supplementation for 30 Days, #90 TAB 2 Refills Prov:GHAZALA ERNST MD 08/18/21 [Folic Acid] 1 MG TABLET No Conflict Check, 1 MG PO DAILY for supplementation for 30 Days, #30 2 Refills Prov:GHAZALA ERNST MD 08/18/21 Reported Medications Tiotropium [place] (SPIRIVA) 18 Mcg Cap.w.dev, 2 INH IH DAILY for breathing/COPD, #1 INH 0 Refills 08/16/21 [budesonide] Unknown Strength No Conflict Check, INH 08/16/21 Ondansetron (ONDANSETRON ODT) 4 Mg Tab.rapdis, 1 TAB PO QID for nausea, #16 TAB 08/16/21 Omeprazole (OMEPRAZOLE) 20 Mg Tablet.dr, 1 TAB PO DAILY for GERD, #90 TAB 1 Refill 08/16/21 Aspirin (ASPIRIN EC) 81 Mg Tablet.dr, 1 TAB PO DAILY for anticoag/hx stroke/pacer, #30 TAB 3 Refills 08/16/21 Metoprolol Succinate (METOPROLOL SUCCINATE ( XL )) 25 Mg Tab.er.24h, 1 TAB PO DAILY for heart/bp, #30 TAB 5 Refills 08/16/21 Apixaban (ELIQUIS) 5 Mg Tablet, 5 MG PO BID for anticoagulation, TAB 08/16/21 Atorvastatin Calcium (ATORVASTATIN CALCIUM) 40 Mg Tablet, 1 TAB PO QHS for cholesterol, #90 TAB 3 Refills 08/16/21 Mirtazapine (MIRTAZAPINE) 15 Mg Tablet, 1 TAB PO QHS for mood/appetite, #30 TAB 3 Refills 08/16/21 GHAZALA ERNST MD Aug 18, 2021 12:02
--- NOTE | 2021-08-18 14:38 | NUR ---
SW following. Discussed with RN, pt from home with , room air, cardiac diet. Pt wanting to do outpatient therapy at the [facility], rather than home health. Pt wanting to continue to drink. Discharge orders for pt to return home.
[2021-08-18 14:58] VITALS: BP 116/60
--- NOTE | 2021-08-18 15:57 | NUR ---
Pt discharged home with outpt physical therapy. Discharge instructions and prescriptions discussed with patient and . IV removed. Wound dressings changed. Pt packed belongings. Assisted to wheelchair and was secured in car with .
[2021-08-21] MEDS ORDERED: MULTIVITAMIN with MINERAL TABLET. PO SCH (09:00)
[2021-08-21] MEDS ORDERED: FOLIC ACID 1 MG TABLET. PO SCH (09:00)
[2021-08-21] MEDS ORDERED: THIAMINE 100 MG TABLET. PO SCH (09:00)
--- NOTE | 2021-08-25 13:30 | PDOC3 ---
[facility]-Discharge Summary Date of Admission: Date of Admission: Aug 16, 2021 Date of Discharge: Date of Discharge: Aug 18, 2021 Discharge Diagnosis: Discharge Diagnosis: Vitamin B12 deficiency Mechanical fall with scalp hematoma Acute alcohol intoxication Macrocytic anemia Acute electrolyte derangementhyponatremia, hypochloremia, hypocalcemia due to volume depletion Questionable syncope due to vasovagal etiology, orthostatic hypotension, cardiovascular etiology Consults: Consults: per neurology: No evidence of a stroke, the gait ataxia without appendicular ataxia is consistent with his abuse of alcohol. Acute alcohol intoxication, no sign of acute withdrawal Concussion, head injury History of prior strokes from which he made a full recovery. History of atrial fibrillation and coronary artery disease with myocardial infarction Hyponatremia, hypochloremia, hypocalcemia at admission Plan Needs [facility] No need for MRI Alcohol withdrawal prophylaxis. We will need to make a decision regarding risks versus benefits of continuing on the apixaban, okay to use it for now. per cardiology: Plan 1. Gait instability due to alcohol abuse 2. SSS s/p PPM 3. Paroxysmal atrial fibrillation; presently SR with intermittent a pacing 3. History of nonischemic cardiomyopathy and type II non-STEMI 4. History of CVA on anticoagulation 5. Hypertension 6. Hyperlipidemia Recommendations Outpatient echocardiogram Consider for LAAO device given AFIB with gait instability, alcohol abuse Follow-up with [facility] upon discharge Supportive care Justicifation of Admission Dx: Justifications for Admission: Justification of Admission Dx: N/A ANDRIA HUTTON MD 08/19/21 0807: CARDIO Progress Notes Plan Plan Late entry for 08/18/2021 Patient seen and examined. Agree with above nurse practitioner note. Hospital Course: Hospital Course: 71-year-old male with past medical history of hypertension, dyslipidemia, pacemaker placement done at for unknown reasons and history of prior stroke. Patient states that he had the whole stroke work-up but is unsure if he had atrial fibrillation or any coronary heart disease. Patient is also on Eliquis but does not know why. He is brought in by EMS after patient suffered a fall in the garage. Patient states that he was walking towards the garage and he tripped and fell and hit his forehead on a concrete floor. There was blood there and he was tried to call for his to help him up. Patient is unsure of whether he lost consciousness or not. He denies any dizziness or near syncope moments before the fall. EMS states that patient was weak on both legs and having trouble walking. Upon my examination and encounter, patient is alert and oriented, moving all extremities equally and in no acute distress, with appropriate vital signs. Bandages on his forehead are dry blood and no active bleeding. Patient states he was in his normal state of health and was ambulatory prior to going out to the garage. He states he does not know why he fell. He denies fevers, nausea or vomiting, headache, focal or lateralizing weakness, numbness or tingling, nec k stiffness/pain/meningismus, vision changes, shortness of breath or chest pain either prior to, during or after the fall, abdominal pain of any kind, flank pain, midline back pain, dysuria, hematuria, polyuria or oliguria, changes in bowel habits, pain or swelling to arms or legs. 08/17/2021 No acute events overnight. Patient seen and examined bedside. Nurse and physical therapy reported instability during standing and needing walker during therapy session. Pending echocardiogram. Will restart Eliquis. Patient's chart, labs, images were reviewed and discussed with RN By day of discharge patient was clinically stable and ready for discharge. Patient will need to return home with and do outpatient physical therapy with the [facility] rather than home health. PT evaluated but patient wants to continue to drink and does not intend to stop. Patient's chart, labs, images were review ed and discussed with RN Disposition: Disposition/Orders: D/C to Home, D/C to Home w/ HH Activity: Activity: Resume previous activity Diet: Diet: Cardiac Medications: Home Meds Active Scripts Cyanocobalamin (Vitamin B-12) (VITAMIN B-12) 1,000 Mcg Tablet, 1 TAB PO DAILY for b12 deficiency for 30 Days, #30 TAB 0 Refills Prov:GHAZALA ERNST MD 08/18/21 Thiamine Mononitrate (VITAMIN B-1) 100 Mg Tablet, 300 MG PO DAILY for supplementation for 30 Days, #90 TAB 2 Refills Prov:GHAZALA ERNST MD 08/18/21 [Folic Acid] 1 MG TABLET No Conflict Check, 1 MG PO DAILY for supplementation for 30 Days, #30 2 Refills Prov:GHAZALA ERNST MD 08/18/21 Reported Medications Tiotropium [place] (SPIRIVA) 18 Mcg Cap.w.dev, 2 INH IH DAILY for breathing/COPD, #1 INH 0 Refills 08/16/21 [budesonide] Unknown Strength No Conflict Check, INH 08/16/21 Ondansetron (ONDANSETRON ODT) 4 Mg Tab.rapdis, 1 TAB PO QID for nausea, #16 TAB 08/16/21 Omeprazole (OMEPRAZOLE) 20 Mg Tablet.dr, 1 TAB PO DAILY for GERD, #90 TAB 1 Refill 08/16/21 Aspirin (ASPIRIN EC) 81 Mg Tablet.dr, 1 TAB PO DAILY for anticoag/hx stroke/pacer, #30 TAB 3 Refills 08/16/21 Metoprolol Succinate (METOPROLOL SUCCINATE ( XL )) 25 Mg Tab.er.24h, 1 TAB PO DAILY for heart/bp, #30 TAB 5 Refills 08/16/21 Apixaban (ELIQUIS) 5 Mg Tablet, 5 MG PO BID for anticoagulation, TAB 08/16/21 Atorvastatin Calcium (ATORVASTATIN CALCIUM) 40 Mg Tablet, 1 TAB PO QHS for cholesterol, #90 TAB 3 Refills 08/16/21 Mirtazapine (MIRTAZAPINE) 15 Mg Tablet, 1 TAB PO QHS for mood/appetite, #30 TAB 3 Refills 08/16/21 Scheduled Apixaban (Eliquis), 5 MG PO BID, (Reported) Aspirin (Aspirin Ec), 1 TAB PO DAILY, (Reported) Atorvastatin Calcium (Atorvastatin Calcium), 1 TAB PO QHS, (Reported) Cyanocobalamin (Vitamin B-12) (Vitamin B-12), 1 TAB PO DAILY Metoprolol Succinate (Metoprolol Succinate ( Xl )), 1 TAB PO DAILY, (Reported) Mirtazapine (Mirtazapine), 1 TAB PO QHS, (Reported) Omeprazole (Omeprazole), 1 TAB PO DAILY, (Reported) Ondansetron (Ondansetron Odt), 1 TAB PO QID, (Reported) Thiamine Mononitrate (Vitamin B-1), 300 MG PO DAILY Tiotropium [place] (Spiriva), 2 INH IH DAILY, (Reported) [Folic Acid], 1 MG PO DAILY Miscellaneous Medications [budesonide], Unknown Dose INH, (Reported) Total Time: Total Time: Total time spent was 34 minutes in preparing scripts, discharge planning with [facility] and RN and preparing this discharge summary Patient seen and examined on day of discharge. No acute abnormal findings. Justicifation of Admission Dx: Justifications for Admission: Justification of Admission Dx: N/A GHAZALA ERNST MD Aug 25, 2021 13:30
== END 2021-08-18 15:59 | disposition home or self-care (01) | DRG 604 ==
LOC: ER 20:35 → OBSVTOIN 23:15 → 5 SOUTH 23:15
PROVIDERS: ADMIT Internal Medicine; ATTEND Internal Medicine
DX: S00.03XA Contusion of scalp, initial encounter (principal); E43 Unspecified severe protein-calorie malnutrition; E87.1 Hypo-osmolality and hyponatremia; I42.8 Other cardiomyopathies; F10.129 Alcohol abuse with intoxication, unspecified; D53.9 Nutritional anemia, unspecified; E78.5 Hyperlipidemia, unspecified; E83.51 Hypocalcemia; E86.9 Volume depletion, unspecified; E87.8 Other disorders of electrolyte and fluid balance, not elsewhere classified; F17.210 Nicotine dependence, cigarettes, uncomplicated; I10 Essential (primary) hypertension; I25.10 Atherosclerotic heart disease of native coronary artery without angina pectoris; I25.2 Old myocardial infarction; I48.0 Paroxysmal atrial fibrillation; J43.2 Centrilobular emphysema; R29.6 Repeated falls; W01.198A Fall on same level from slipping, tripping and stumbling with subsequent striking against other object, initial encounter; Y90.7 Blood alcohol level of 200-239 mg/100 ml; Y92.015 Private garage of single-family (private) house as the place of occurrence of the external cause; Y93.01 Activity, walking, marching and hiking; Z79.01 Long term (current) use of anticoagulants; Z86.73 Personal history of transient ischemic attack (TIA), and cerebral infarction without residual deficits; Z95.810 Presence of automatic (implantable) cardiac defibrillator
CPT/HCPCS: 12011; 36415; 70450; 70496; 70498; 71045; 72125; 80048; 80053; 80307; 81001; 82550; 82607; 83735; 84100; 84484; 85025; 85610; 85730; 90471; 90715; 93005; 96365; G0480; J3411; J3475; J7030; J7060; 97110-GO; 97116-GP; 97530-GP; 97535-GO; 99285-25; G0378